=== PATIENT | male | born 1985 | race Caucasian/White ===

== ENCOUNTER 2017-08-15 19:09 | Emergency (ER) | payer SELFPAY ==
[2017-08-15 20:48] LABS: Absolute Lymphocytes (CBC) 1.1 K/uL (0.7-4.9); Absolute Monocytes 0.4 K/uL (0.1-1.3); Basophils % 0.6 % (0-1.3); Eosinophils % 1.2 % (0-4.4); Hematocrit 48.6 % (39.6-49.0); Lymphocytes % 17.1 % (15.3-44.8); MCH 32.1 pg (27.0-35.0); MCV 94.2 fL (80-100); MPV 7.2 fL (7.6-11.3); Monocytes % 6.2 % (3.3-12.3); RBC Red Blood Cell Count 5.16 M/uL (4.33-5.43)
[2017-08-15 20:53] LABS: Bicarbonate 30 mEq/L (21-31); Glucose Level 93 mg/dL (65-120); Potassium 4.2 mEq/L (3.6-5.0); Sodium Level 140 mEq/L (135-145)
[2017-08-15 20:59] LABS: Barbiturates NEGATIVE; Benzodiazepines NEGATIVE; Cocaine NEGATIVE; METHAMPHETAM NEGATIVE; Opiates NEGATIVE; Phencyclidine NEGATIVE; THC Cannibis POSITIVE
[2017-08-15 21:28] LABS: Urine Blood NEGATIVE (NEG); Urine Glucose NEGATIVE (NEG); Urine Protein NEGATIVE (NEG); Urine Specific Gravity 1.015 (1.005-1.030)
[2017-08-15 21:32] LABS: ALT/SGPT 19 IU/L (10-60); AST/SGOT 20 IU/L (10-42); Albumin 4.3 g/dL (3.2-5.5); Alkaline Phosphatase 73 IU/L (42-121); BUN Blood Urea Nitrogen 9 mg/dL (6-20); Bilirubin Total 0.5 mg/dL (0.3-1.2); Glomerular Filtration Rate > 90 mL/min (=/>90); Protein, Total 7.6 g/dL (6.0-8.3)
--- NOTE | 2017-08-15 21:54 | ER ---
Nurse's Notes [facility] Name: Shreyas Graves Age: 32 yrs Sex: Male : 1985 Arrival Date: 08/15/2017 Time: 19:17 Bed 17 Private MD: Diagnosis: Alcohol abuse;Cannabis abuse;Inhalant abuse with intoxication, uncomplicated Presentation: 08/15 19:17 Presenting complaint: EMS states: "picked up after huffing 'multi-purpose duster' and jd3 drinking, was given a choice to be arrested or come to the hospital. pt denies any suicidal ideation or homicidal ideation.". Transition of care: patient was not received from another setting of care. Onset of symptoms was August 15, 2017. Care prior to arrival: None. 19:17 Method Of Arrival: EMS: [facility] jd3 19:17 Acuity: BRUNO 3 jd3 Historical: - Allergies: 19:21 No Known Allergies; jd3 - Home Meds: 19:21 gabapentin oral oral [Active]; Prozac Oral [Active]; jd3 - PMHx: 19:21 Depression; jd3 - PSHx: 19:21 None; jd3 - Immunization history:: Adult Immunizations up to date. - Social history:: Smoking status: Patient uses tobacco products, denies chronic smoking, but will smoke occasionally, Patient uses alcohol, occasionally. - Family history:: not pertinent. - Hospitalizations: : No recent hospitalization is reported. Screenin:24 Abuse screen: Denies threats or abuse. Nutritional screening: No deficits noted. jd3 Tuberculosis screening: No symptoms or risk factors identified. Fall Risk Mental Status- Overestimates/Forgets Limitations (15 pts.). Total Joyce Fall Scale indicates No Risk (0-24 pts). Assessment: 19:23 General: Appears in no apparent distress. comfortable, Behavior is calm, cooperative, jd3 appropriate for age, Smells of alcohol. Pain: Denies pain. Neuro: Level of Consciousness is awake, alert, obeys commands, Oriented to person, place, time, situation. Cardiovascular: Heart tones S1 S2 present Capillary refill < 3 seconds Patient's skin is warm and dry. Rhythm is regular. Respiratory: Airway is patent Respiratory effort is even, unlabored, Respiratory pattern is regular, symmetrical, Breath sounds are clear bilaterally. GI: Abdomen is round Bowel sounds present X 4 quads. Abd is soft and non tender X 4 quads. : No signs and/or symptoms were reported regarding the genitourinary system. EENT: No signs and/or symptoms were reported regarding the EENT system. Derm: Skin is intact, Skin is dry, Skin is normal, Skin temperature is warm. Musculoskeletal: Circulation, motion, and sensation intact. Range of motion: intact in all extremities. 20:46 Reassessment: Patient appears in no apparent distress at this time. Patient and/or jd3 family updated on plan of care and expected duration. Pain level reassessed. Patient is alert, oriented x 3, equal unlabored respirations, skin warm/dry/pink. 22:11 Reassessment: Patient appears in no apparent distress at this time. Patient and/or jd3 family updated on plan of care and expected duration. Pain level reassessed. Patient is alert, oriented x 3, equal unlabored respirations, skin warm/dry/pink. reported understanding of discharge instructions, even and steady gait upon discharge. Vital Signs: 19:21 BP 129 / 85; Pulse 91; Resp 16 S; Temp 98.2(O); Pulse Ox 100% on R/A; Weight 83.91 kg jd3 (R); Height 5 ft. 11 in. (180.34 cm) (R); Pain 0/10; 20:33 BP 125 / 77; Pulse 84; Resp 16; Pulse Ox 99% on R/A; mt 21:30 BP 136 / 85; Pulse 84; Resp 16; Pulse Ox 98% on R/A; mt 22:12 BP 112 / 74; Pulse 84; Resp 17 S; Pulse Ox 99% on R/A; Pain 0/10; jd3 19:21 Body Mass Index 25.80 (83.91 kg, 180.34 cm) [facility] ED Course: 19:17 Patient arrived in ED. [facility] 19:19 Triage completed. [facility] 19:22 Arm band placed on. [facility] 19:22 EKG done, by ED staff, reviewed by rPeet Owens MD. ar 19:24 Patient has correct armband on for positive identification. Bed in low position. Call [facility] light in reach. Side rails up X2. 19:30 Elsi Ortega FNP is [facility]. kalida 19:30 Preet Owens MD is Attending Physician. ka 19:41 Avtar Mccallum, RN is Primary Nurse. jd3 20:43 CBC with Diff Sent. mt 20:43 CMP Sent. mt 20:43 Urine Drug Screen Sent. ar 20:43 Alcohol Level Sent. mt 22:10 No provider procedures requiring assistance completed. Patient did not have IV access jd3 during this emergency room visit. Administered Medications: No medications were administered Outcome: 21:53 Discharge ordered by . fide 22:10 Discharged to home ambulatory. jd3 22:10 Condition: stable 22:10 Discharge instructions given to patient, Instructed on discharge instructions, follow up and referral plans. Demonstrated understanding of instructions, follow-up care. 22:13 Patient left the ED. jd3 Signatures: Elsi Ortega, LABORER FILTER PLANT LABORER FILTER PLANT Ada Santos ar Avtar Mccallum, RN RN jd3 Corrections: (The following items were deleted from the chart) 19:22 19:22 EKG completed in triage. Results shown to MD. halley jd3
--- NOTE | 2017-08-15 21:54 | EDPHYS ---
Physician Documentation [facility] Name: Shreyas Graves Age: 32 yrs Sex: Male : 1985 Arrival Date: 08/15/2017 Time: 19:17 Bed 17 Private MD: ED Physician Preet Owens HPI: 08/15 20:29 This 32 yrs old Male presents to ER via EMS with complaints of inebriation. kav 20:32 This 32 yrs old Male presents to ER via EMS with complaints of inebriated and kav huffed on a spray can to get high. 20:29 Onset: The symptoms/episode began/occurred acutely. Severity of symptoms: At their kav worst the symptoms were moderate just prior to arrival. 20:31 The patient has experienced similar episodes in the past, chronically. kav 20:32 reports drinking alcoholic beverages all day and reports that he is a binge drinker. kav also reports that he has been huffing on a spray can to get high. Historical: - Allergies: 19:21 No Known Allergies; jd3 - Home Meds: 19:21 gabapentin oral oral [Active]; Prozac Oral [Active]; jd3 - PMHx: 19:21 Depression; jd3 - PSHx: 19:21 None; jd3 - Immunization history:: Adult Immunizations up to date. - Social history:: Smoking status: Patient uses tobacco products, denies chronic smoking, but will smoke occasionally, Patient uses alcohol, occasionally. - Family history:: not pertinent. - Hospitalizations: : No recent hospitalization is reported. ROS: 20:32 Constitutional: Negative for fever, chills, and weight loss, Eyes: Negative for injury, kav pain, redness, and discharge, ENT: Negative for injury, pain, and discharge, Neck: Negative for injury, pain, and swelling, Cardiovascular: Negative for chest pain, palpitations, and edema, Respiratory: Negative for shortness of breath, cough, wheezing, and pleuritic chest pain, Abdomen/GI: Negative for abdominal pain, nausea, vomiting, diarrhea, and constipation, Back: Negative for injury and pain, : Negative for injury, bleeding, discharge, and swelling, MS/Extremity: Negative for injury and deformity, Skin: Negative for injury, rash, and discoloration, Neuro: Negative for headache, weakness, numbness, tingling, and seizure, Psych: Negative for depression, anxiety, suicide ideation, homicidal ideation, and hallucinations, Allergy/Immunology: Negative for hives, rash, and allergies, Endocrine: Negative for neck swelling, polydipsia, polyuria, polyphagia, and marked weight changes, Hematologic/Lymphatic: Negative for swollen nodes, abnormal bleeding, and unusual bruising. Exam: 20:32 Constitutional: This is a well developed, well nourished patient who is awake, alert, kav and in no acute distress. Head/Face: Normocephalic, atraumatic. Eyes: Pupils equal round and reactive to light, extra-ocular motions intact. Lids and lashes normal. Conjunctiva and sclera are non-icteric and not injected. Cornea within normal limits. Periorbital areas with no swelling, redness, or edema. ENT: Nares patent. No nasal discharge, no septal abnormalities noted. Tympanic membranes are normal and external auditory canals are clear. Oropharynx with no redness, swelling, or masses, exudates, or evidence of obstruction, uvula midline. Mucous membranes moist. Neck: Trachea midline, no thyromegaly or masses palpated, and no cervical lymphadenopathy. Supple, full range of motion without nuchal rigidity, or vertebral point tenderness. No Meningismus. Chest/axilla: Normal chest wall appearance and motion. Nontender with no deformity. No lesions are appreciated. Cardiovascular: Regular rate and rhythm with a normal S1 and S2. No gallops, murmurs, or rubs. Normal PMI, no JVD. No pulse deficits. Respiratory: Lungs have equal breath sounds bilaterally, clear to auscultation and percussion. No rales, rhonchi or wheezes noted. No increased work of breathing, no retractions or nasal flaring. Abdomen/GI: Soft, non-tender, with normal bowel sounds. No distension or tympany. No guarding or rebound. No evidence of tenderness throughout. Back: No spinal tenderness. No costovertebral tenderness. Full range of motion. Skin: Warm, dry with normal turgor. Normal color with no rashes, no lesions, and no evidence of cellulitis. MS/ Extremity: Pulses equal, no cyanosis. Neurovascular intact. Full, normal range of motion. Neuro: Awake and alert, GCS 15, oriented to person, place, time, and situation. Cranial nerves II-XII grossly intact. Motor strength 5/5 in all extremities. Sensory grossly intact. Cerebellar exam normal. Normal gait. Psych: Awake, alert, with orientation to person, place and time. Behavior, mood, and affect are within normal limits. Vital Signs: 19:21 BP 129 / 85; Pulse 91; Resp 16 S; Temp 98.2(O); Pulse Ox 100% on R/A; Weight 83.91 kg jd3 (R); Height 5 ft. 11 in. (180.34 cm) (R); Pain 0/10; 20:33 BP 125 / 77; Pulse 84; Resp 16; Pulse Ox 99% on R/A; mt 21:30 BP 136 / 85; Pulse 84; Resp 16; Pulse Ox 98% on R/A; mt 22:12 BP 112 / 74; Pulse 84; Resp 17 S; Pulse Ox 99% on R/A; Pain 0/10; jd3 19:21 Body Mass Index 25.80 (83.91 kg, 180.34 cm) jd3 MDM: 19:30 [facility] medically screened. [facility] 21:55 Data reviewed: vital signs, nurses notes, lab test result(s). [facility] 08/15 20:29 Order name: CBC with Diff [facility] 08/15 20:29 Order name: CMP 08/15 20:29 Order name: Urine Drug Screen [facility] 08/15 20:31 Order name: Alcohol Level [facility] 08/15 20:47 Order name: Urine Dipstick--Ancillary (enter results); Complete Time: 21:23 rg2 08/15 21:23 Interpretation: Within normal limits. [facility] 08/15 20:54 Order name: Comprehensive Metabolic Panel; Complete Time: 21:53 EDMS 08/15 21:13 Interpretation: Normal except: CL 99. [facility] 08/15 20:29 Order name: Urine Dipstick-Ancillary (obtain specimen); Complete Time: 20:43 [facility] 08/15 21:17 Interpretation: Within normal limits. [facility] 08/15 20:58 Order name: CBC with Automated Diff; Complete Time: 21:13 EDMS 08/15 21:13 Interpretation: Normal except: MPV 7.2; GRISELDA% 74.9. [facility] 08/15 20:59 Order name: Urine Drug Screen; Complete Time: 21:12 EDMS 08/15 21:12 Interpretation: Normal except: THC POSITIVE. kav 08/15 21:29 Order name: Urine Dipstick-Ancillary; Complete Time: 21:53 EDMS 03 21:53 Interpretation: Within normal limits. kav 08/15 21:32 Order name: Alcohol Serum/Plasma; Complete Time: 21:53 EDMS 03 21:53 Interpretation: Normal except: ETOH 135. kav Administered Medications: No medications were administered Disposition: 08/16 07:06 Co-signature as Attending Physician, Preet Owens MD I agree with the assessment and [facility] plan of care. Disposition: 08/15/17 21:53 Discharged to Home. Impression: Alcohol abuse, Cannabis abuse, Inhalant abuse with intoxication, uncomplicated. - Condition is Stable. - Discharge Instructions: Alcohol and Drug Addiction, Finding Treatment, Alcohol Use Disorder, Inhalant Use Disorder, Polysubstance Abuse, Alcohol Abuse and Nutrition, Alcohol Withdrawal, [id number], How Much is Too Much Alcohol, [id number]. - Medication Reconciliation Form, Thank You Letter, Antibiotic Education, Prescription Opioid Use form. - Follow up: Private Physician; When: 1 - 2 days; Reason: Recheck today's complaints, Continuance of care, Re-evaluation by your physician. - Problem is new. - Symptoms have improved. - Notes: abstain from alcohol, cannibis and inhalant abuse ensure adequate hydration Signatures: Dispatcher [employer] Preet Acosta MD MD cha Vern, Katherine, JANITOR HEAD JANITOR HEAD Avtar Gaviria, RN RN jd3 Corrections: (The following items were deleted from the chart) 08/15 20:33 20:29 patient reportedly inebriated and reports that he "...huffed on a paint can to kav get high". kav
--- NOTE | 2017-08-16 07:26 | EKG ---
Test Date: 2017-08-15 Test Time: 19:20:23 Acoustical Logging Engineer: YEFRI MEASUREMENT RESULTS: Intervals: Rate: 83 TN: 134 QRSD: 92 QT: 370 QTc: 434 [place]: P: 35 TN: 134 QRS: 84 T: 26 INTERPRETIVE STATEMENTS: Normal sinus rhythm normal ECG No previous ECG available for comparison Electronically Signed On 08-16-17 07:25:22 CDT by Fabiano Atwood
== END 2017-08-15 22:13 | disposition home or self-care (01) ==
LOC: ER 19:09
DX: F10.10 Alcohol abuse, uncomplicated (principal); F12.10 Cannabis abuse, uncomplicated; F32.9 Major depressive disorder, single episode, unspecified; Z72.0 Tobacco use
CPT/HCPCS: 36415; 80053; 80307; 80320; 81003; 85025; 93005; 99284

== ENCOUNTER 2018-02-23 22:57 | Emergency (ER) | payer SELFPAY ==
--- OUTSIDE RECORDS SUMMARY | 2018-02-23 22:59 | XMS REPORT | Clinical Summary ---
:1985 Author Organization [facility] Address [address] [place] [address] Care Team Providers Name Role Phone Asked, No Pcp Primary Care Provider Unavailable Allergies No Known Allergies Current Medications Prescription Sig. Disp. Refills Start Date End Date Status mirtazapine (REMERON) Take 1 tablet 30 tablet 0 07/17/2017 08/16/2017 15 MG (15 mg total) tabletIndications: by mouth Major Depressive nightly for 30 Disorder days. gabapentin Take 1 capsule 90 capsule 0 07/17/2017 08/16/2017 (NEURONTIN) 400 mg (400 mg total) capsuleIndications: by mouth 3 Alcoholism (three) times a day for 30 days. FLUoxetine (PROzac) Take 1 capsule 30 capsule 0 07/17/2017 08/16/2017 40 MG (40 mg total) capsuleIndications: by mouth every Major Depressive morning for 30 Disorder days. nicotine (NICODERM Place 1 patch 30 patch 0 07/17/2017 08/16/2017 CQ) 21 mg/24 on the skin hrIndications: daily as needed Smoking Cessation (Cravings) for up to 30 days. disulfiram (ANTABUSE) Take 2 tablets 60 tablet 0 07/17/2017 08/16/2017 250 mg (500 mg total) tabletIndications: by mouth daily Alcoholism for 30 days. 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 Pulse 71 07/18/2017 5:54 AM VOTING MACHINE REPAIRER Temperature 36.1 C (97 F) 07/18/2017 5:54 AM VOTING MACHINE REPAIRER Respiratory Rate 18 07/18/2017 5:54 AM VOTING MACHINE REPAIRER Oxygen Saturation 97% 07/17/2017 7:13 PM VOTING MACHINE REPAIRER Inhaled Oxygen Concentration - - Weight 87.1 kg (192 lb) 07/11/2017 9:33 PM VOTING MACHINE REPAIRER Height 180.3 cm (5' 11") 07/11/2017 9:33 PM VOTING MACHINE REPAIRER Body Mass Index 26.78 07/11/2017 9:33 PM VOTING MACHINE REPAIRER Plan of Treatment Not on file Procedures Procedure Name Priority Date/Time Associated Diagnosis Comments ECG 12-LEAD STAT 07/12/2017 9:20 AM Results for this VOTING MACHINE REPAIRER procedure are in the results section. LIPID PANEL Routine 07/12/2017 1:10 AM Results for this VOTING MACHINE REPAIRER procedure are in the results section. HEMOGLOBIN A1C Routine 07/12/2017 1:10 AM Results for this VOTING MACHINE REPAIRER procedure are in the results section. after 02/22/2017 Results ECG 12 lead (07/12/2017 9:20 AM) Ventricular rate 78 [facility] Atrial rate 78 [facility] FL interval 130 [facility] QRSD interval 96 [facility] QT interval 360 [facility] QTC interval 410 [facility] P axis 1 30 [facility] QRS axis 1 61 [facility] T wave axis 40 [facility] EKG impression Normal sinus rhythm-Early [facility] MUSE repolarization-Normal ECG-No previous ECGs available- Performing Organization Address City/State/Zipcode Phone Number [facility] MUSE [address] [place] [address] Hemoglobin A1c (07/12/2017 1:10 AM) Hemoglobin A1C 4.8 4.0 - 5.6 % [facility] DEPARTMENT OF PATHOLOGY Comment: AND GENOMIC MEDICINE HbA1c cutoffs for diagnosing diabetes: 4.0% - 5.6%=normal 5.7% - 6.4%=increased risk for diabetes (prediabetes) >=6.5%=diabetes Goals for glycemic control (ADA 2016) < 7.0%Target for non adults with diabetes. More or less stringent targets may be appropriate for individual patients. <7.5% Target for Children and adolescents with type 1 diabetes. Specimen Blood Performing Organization Address City/[facility]/Zipcode Phone Number [facility] DEPARTMENT OF PATHOLOGY AND [address] [place] [address] [facility] Lipid panel (07/12/2017 1:10 AM) Cholesterol 152 <200 mg/dL [facility] DEPARTMENT OF PATHOLOGY AND GENOMIC MEDICINE Triglycerides 92 <150 mg/dL [facility] DEPARTMENT OF PATHOLOGY AND GENOMIC MEDICINE HDL cholesterol 51 >40 mg/dL [facility] DEPARTMENT OF PATHOLOGY AND GENOMIC MEDICINE LDL cholesterol 96Comment: Result <100 mg/dL [facility] DEPARTMENT OF obtained by direct LDL PATHOLOGY AND GENOMIC measurement MEDICINE Lipid panel interpretation SeeBelow [facility] DEPARTMENT OF Comment: PATHOLOGY AND GENOMIC Total Cholesterol (mg/dL) MEDICINE <200 Desirable [id number] >=240High Triglycerides (mg/dL) <150 Normal [id number] 200-499High >=500Very high HDL Cholesterol (mg/dL) <40Low (male) <40Low (female) LDL Cholesterol (mg/dL) <100 Optimal 100-129Near or above optimal [id number] 160-189High >=190Very high Risk Catergories that modify LDL goals. Risk CatergoriesLDL goal (mg/dL) CHD and CHD risk equivalent<100 (10-year risk >20%) Multiple (2+) risk factors <130 (10-year risk=<20%) 0-1 risk factors <160 (<10-year risk) Defining levels of lipids in metabolic syndrome Triglycerides>=150 mg/dL HDL Cholesterol Men<40 mg/dL Women<40 mg/dL Non-HDL cholesterol is a second target for therapy in persons with high triglycerides (>=200 mg/dL) Specimen Plasma specimen Performing Organization Address City/State/Zipcode Phone Number [facility] DEPARTMENT OF PATHOLOGY AND [address] [place] [address] [facility] after 02/22/2017
--- OUTSIDE RECORDS SUMMARY | 2018-02-23 23:00 | XMS REPORT ---
:1985 [facility] Address [address] [place] [address] [address]. Anand [address] [place] [address] Care Team Providers Name Role Phone UNKNOWN, REFFERING Primary Care Provider Unavailable JASS QUIROGA Unavailable Unavailable JN HANDY Unavailable Unavailable Problems This patient has no known problems. Allergies, Adverse Reactions, Alerts This patient has no known allergies or adverse reactions. Medications This patient has no known medications. Encounters Start End Encounter Admission Attending Care Care Encounter Date/Time Date/Time Type Type Clinicians Facility Department ID 2017-06-21 2017-06-21 [id number] 18:20:00 18:20:00 [facility] 2017-03-09 2017-03-09 Outpatient [facility] [id number] 10:00:34 10:00:34 2017-02-20 2017-02-20 Outpatient [facility] [id number] 09:20:47 09:20:47 2017-02-19 2017-02-19 Outpatient [facility] [id number] 00:00:00 00:00:00 2017-01-22 2017-01-22 Outpatient [facility] [id number] 00:00:00 00:00:00 2017-01-18 2017-01-18 Outpatient [facility] [id number] 00:00:00 00:00:00 2017-01-08 2017-01-08 Outpatient [facility] [id number] 11:44:05 11:44:05 2016-12-28 2016-12-28 Outpatient [facility] [id number] 12:28:35 12:28:35 2016-12-25 2016-12-25 Outpatient [facility] [id number] 13:05:59 13:05:59 2016-12-18 2016-12-18 Outpatient [facility] [id number] 00:00:00 00:00:00 2016-12-15 2016-12-15 Outpatient [facility] [id number] 13:06:16 13:06:16 2016-12-11 2016-12-11 Outpatient [facility] [id number] 10:18:48 10:18:48 2016-12-08 2016-12-08 Outpatient [facility] [id number] 11:14:06 11:14:06 2016-11-27 2016-11-27 Outpatient [facility] [id number] 10:17:18 10:17:18 2016-11-27 2016-11-27 Outpatient [facility] [id number] 09:42:12 09:42:12 2016-11-26 2016-11-26 Emergency [facility] [id number] 15:32:51 15:32:51 2016-11-26 2016-11-26 Emergency [facility] [id number] 09:37:18 09:37:18 2016-09-30 2016-09-30 Emergency [facility] [id number] 17:18:00 17:18:00 2016-09-03 2016-09-05 Inpatient 3 HANDY, BHSSET DTX [id number] 20:34:00 23:00:00 JN 2016-07-30 2016-08-11 Inpatient 2 HANDY, BHSSET DTX [id number] 00:02:00 11:02:00 JN 2016-07-29 2016-07-29 Emergency [facility] [id number] 16:55:00 16:55:00 2016-07-25 2016-07-25 Emergency [facility] [id number] 16:37:00 16:37:00 2016-07-16 2016-07-16 Emergency [facility] [id number] 11:32:00 11:32:00 Results Test Description Test Time Test Comments Text Results Atomic Results Result Comments [id number] 2017-06-21 23:39:00 Test Item Value Reference Range Comments Amphetamine (test code=AMPH) Negative Negative For diagnostic purposes only, positive results should always be assessedin conjunctionwith the patient's medical history,clinical examination and otherfindings.To fulfill legal requirements, a more specific alternate chemical methodmust be used inorder to obtain a Confirmed analytical result. GC/MS is the preferred confirmatory method. Barbiturates (test code=CHERYLE) Negative Negative Benzodiazepine (test code=SAMANTHA) Negative Negative Cocaine (test code=COCA) Negative Negative Methadone (test code=MTHD) Negative Negative Opiates (test code=OPIA) Negative Negative PCP (test code=PCP) Negative Negative Propoxyphene (test code=PROPOX) Negative Negative THC (test code=THC) Negative Negative Alcohol, Urine (test code=ETOHU) 0.20 g/dL 0.00-0.01 Urinalysis [id number] 23:37:00 Test Item Value Reference Range Comments Color (test code=COLOR) Yellow Yellow,Straw,Pl yellow Clarity (test code=CLAR) Clear Clear Specific [place] (test code=SPGR) 1.018 1.001-1.035 pH (test code=PH) 5.0 5.0-9.0 Ketone (test code=KET) 5 mg/dL Negative Glucose (test code=GLUCUR) Negative mg/dL Negative Protein (test code=PROT) Negative mg/dL Negative Bilirubin (test code=BILI) Negative mg/dL Negative Occult Blood (test code=UDOB) Negative Negative Urobilinogen (test code=UROB) 0.2 mg/dL 0.2-1.0 Nitrite (test code=NIT) Negative Negative Leuk Esterase (test code=LEUK) Negative Negative Micros Exam (test code=MEXAM) Indicated Epithelial Cells (test code=EPI) None /LPF 0-30 WBC, Urine (test code=UWBC) None seen /HPF 0-5 RBC, Urine (test code=URBC) None Seen /HPF 0-5 Bacteria (test code=BACT) None /HPF Alcohol/Ethanol, [id number] 20:42:00 Test Item Value Reference Range Comments Alcohol, Ethyl (test 0.21 g/dL 0.00-0.01 Intoxicated 0.080 g/dL or code=ETOH) more Comprehensive Metabolic [id number] 20:42:00 Test Item Value Reference Range Comments Sodium (test code=NA) 144 mmol/L 135-145 Potassium (test code=K) 4.0 mmol/L 3.5-5.1 Chloride (test code=CL) 100 mmol/L 98-105 Carbon Dioxide (test 31 mmol/L 22-29 code=CO2) Glucose (test code=GLU) 94 mg/dL 70-115 Blood Urea Nitrogen 14 mg/dL 6-20 (test code=BUN) Creatinine (test 1.0 mg/dL 0.7-1.2 code=CREAT) Calcium (test code=CA) 9.8 mg/dL 8.3-10.5 Prot Total (test 8.7 g/dL 6.4-8.3 code=TP) Albumin (test code=ALB) 5.2 g/dL 3.5-5.2 A/G Ratio (test 1.5 Ratio code=AGRATIO) Globulin (test 3.5 2.9-3.1 code=GLOB) Bili Total (test 0.2 mg/dL 0.1-0.9 code=TBIL) Alk Phos (test 83 U/L 40-129 code=APHOS) AST (test code=AST) 20 U/L 1-40 ALT (test code=ALT) 23 U/L 1-41 BUN/Creatinine Ratio 14.0 (test code=BCRATIO) Anion Gap (test 13 mmol/L 7-16 code=AGAP) Estimated GFR (test >60 mL/min/1.73m2 eGFR (estimated Glomerular code=GFR) Filtration Rate) is an estimated value,calculated from the patient's serum creatinine using the MDRD equation.It is NOT the patient's actual GFR. The eGFR provides a more clinicallyuseful measure of kidney disease than serum creatinine alone.This calculation takes sex and race into account, if the informationis provided. If the race is not provided, and the patient isAfrican-Namibian, multiply by 1.212. If sex is not provided, and thepatient is female, multiply by 0.742. Results for patients <18 years ofage have not been validated by the MDRD study and should be interpretedwith caution.eGFR Result Interpretation:eGFR > or=60 is in the Normal RangeeGFR < 60 may mean kidney diseaseeGFR < 15 may mean kidney failureRanges recommended by the National Kidney Foundation,http://nkdep.nih .gov [id number] 20:42:00 Test Item Value Reference Range Comments Salicylate (test code=SALI) <0.3 mg/dL 0.3-10.0 Change in unit of measurement for Salicylate ( from ug/mL to mg/dL ) [id number] 20:42:00 Test Item Value Reference Range Comments Acetaminophen (test code=ACET) <15.0 ug/mL 15.0-30.0 CBC with [id number] 20:23:00 Test Item Value Reference Range Comments WBC (test code=WBC) 4.6 K/cumm 4.4-10.5 RBC (test code=RBC) 5.57 M/cumm 4.10-5.70 Hemoglobin (test code=HGB) 16.9 gm/dL 13.4-17.4 Hematocrit (test code=HCT) 48.8 % 38.7-52.0 MCV (test code=MCV) 87.6 fL 80-100 MCH (test code=MCH) 30.4 pg 27.0-32.5 MCHC (test code=MCHC) 34.7 g/dL 32.0-37.5 RDW (test code=RDW) 14.1 % 11.5-14.5 Platelet Count (test code=PLTCT) 331 K/cumm 140-440 MPV (test code=MPV) 8.7 fL Diff Method (test code=DIFFM) Auto Neutrophil (test code=NEUT) 57.5 % 36-70 Lymphocyte (test code=LYMPH) 35.7 % 12-44 Monocyte (test code=MONO) 4.1 % 0-11 Eosinophil (test code=EOS) 1.5 % 0-7 Basophil (test code=BASO) 1.1 % 0-2 Neutro Abs (test code=ANEUT) 2.7 K/cumm 1.6-7.4 Lymph Abs (test code=ALYMPH) 1.6 K/cumm 0.5-4.6 [place] Abs (test code=AMONO) 0.2 K/cumm 0.0-1.2 Eos Abs (test code=AEOS) 0.07 K/cumm 0.00-0.74 Baso Abs (test code=ABASO) 0.1 K/cumm 0.00-0.21 SYPHILIS (T. PALLIDUM) [id number] 15:33:00 Test Item Value Reference Range Comments SCRN SYP (test code=SCRN NONREACTIVE NONREACTIVE Spyhilis IGG is a screening SYP) test only. All REACTIVE results kayleigh be confirmed by additional testing. CREATINE [id number] 10:11:00 Test Item Value Reference Range Comments CK (test code=CK) 417 U/L 55-170 THYROID STIMULATION [id number] 01:57:00 Test Item Value Reference Range Comments TSH (test code=TSH) 0.63 UIU/ML 0.465-4.68 [id number] 01:18:00 Test Item Value Reference Range Comments MG (test code=MG) 2.5 mg/dL 1.6-2.3 [id number] 01:18:00 Test Item Value Reference Range Comments PHOSPHOR (test code=PHOSPHOR) 2.6 MG/DL 2.5-4.5 PROTHROMBIN TIME WITH [id number] 01:04:00 Test Item Value Reference Range Comments PROTHROMBIN TIME (test 11.8 SECONDS 12.0-14.6 INR Usual Range=2 to 3 for code=PT) prevention of deep vein thrombosis (DVT) INR (test code=INR) 0.8 XR CHEST SGL 1V, [id number] 18:23:21CHEST SINGLE VIEW:REASON FOR STUDY: PSYCH SCREENINGFINDINGS:Cardiomediastinal structures are within normal limits. No pleural fluidor pulmonary infiltrates are identified. The bony architecture appearsintact, where adequately seen.IMPRESSION: No active cardiopulmonary process is identified.XR CHEST SGL 1V, [id number] 17:07:24Information: Psychosis and smoking historyCOMPARISON: NoneCHEST:Cardiomediastinal structures are within normal limits. No pleural fluidor pulmonary infiltrates are identified. The bony architecture appearsintact, where adequately seen.
[2018-02-24] MEDS ORDERED: NA CHLORIDE 0.9% 1,000 ML ONE
--- NOTE | 2018-02-24 00:08 | ER ---
Nurse's Notes [facility] Name: Shreyas Graves Age: 32 yrs Sex: Male : 1985 Arrival Date: 02/23/2018 Time: 22:58 Bed 19 Private MD: Diagnosis: Major depressive disorder, recurrent;Suicidal ideations;Suicide attempt;Abuse of non-psychoactive substances Presentation: 02/23 23:08 Presenting complaint: EMS states: EMS reports PD found pt unresponsive at home, upon ea arrival of EMS pt was A \\T\\ O x 3. 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 EMS reports pt verbalized that he did not want to live. Transition of care: patient was not received from another setting of care. Onset of symptoms was February 23, 2018. Risk Assessment: Do you want to hurt yourself or someone else? Patient reports desire/thoughts of hurting themselves or someone else. Provider notified. Initial Sepsis Screen: Does the patient meet any 2 criteria? HR > 90 bpm. Does the patient have a suspected source of infection? No. Patient's initial sepsis screen is negative. Care prior to arrival: None. 23:08 Method Of Arrival: EMS: [facility] ea 23:08 Acuity: BRUNO 2 ea Triage Assessment: 23:08 General: Appears uncomfortable, Behavior is cooperative, appropriate for age, anxious. ea Pain: Denies pain. Neuro: Level of Consciousness is awake, alert, obeys commands, Oriented to person, place, time, situation. Cardiovascular: Heart tones S1 S2 present Patient's skin is warm and dry. Respiratory: Airway is patent Respiratory effort is even, unlabored, Respiratory pattern is regular, symmetrical, Breath sounds are clear bilaterally. GI: No signs and/or symptoms were reported involving the gastrointestinal system. : No signs and/or symptoms were reported regarding the genitourinary system. Derm: red circular peña on chest pt states " those peña are from the can getting cold and being against my chest". Historical: - Allergies: 23:16 No Known Allergies; ea - PMHx: 23:16 Depression; ea - PSHx: 23:16 None; ea - Immunization history:: Adult Immunizations up to date. - Social history:: Smoking status: Patient/guardian denies using tobacco. - Ebola Screening: : No symptoms or risks identified at this time. - Family history:: not pertinent. Screenin:21 Abuse screen: Denies threats or abuse. Nutritional screening: No deficits noted. ea Tuberculosis screening: No symptoms or risk factors identified. Fall Risk None identified. Assessment: 23:20 General: Appears in no apparent distress. uncomfortable, Behavior is calm, cooperative, tl2 appropriate for age. Pain: Denies pain. Neuro: Level of Consciousness is awake, alert, obeys commands, Oriented to person, place, time, situation. Cardiovascular: Denies chest pain. Respiratory: Airway is patent Respiratory effort is even, unlabored, Respiratory pattern is regular, symmetrical. GI: No signs and/or symptoms were reported involving the gastrointestinal system. : No signs and/or symptoms were reported regarding the genitourinary system. Derm: Skin is pink, warm \\T\\ dry. 02/24 01:17 Reassessment: Police stated that pt has been cleared by [facility] and that when he is tl2 medically clear he is going to be released to police custody. 01:32 Reassessment: Patient appears in no apparent distress at this time. Patient and/or tl2 family updated on plan of care and expected duration. Pain level reassessed. Patient is alert, oriented x 3, equal unlabored respirations, skin warm/dry/pink. Pt cleared for discharge by MD, Pt verbalized understanding of discharge instructions. Psych: 00:20 Subjective: Patient's mood is hopeless, Delusions are denied, Hallucinations are denied tl2 Having thoughts of suicide. Denies suicidal plan. pt was huffing condensed air. Objective: Patient is cooperative, Speech is normal, Affect is appropriate. Interventions: Removed personal items and placed in bag. Patient placed in hospital gown. Suicide Risk Assessment: Sad Person Scale: Sex of patient: Male: Score 1 point. Age of patient: Score 1 point if patient 15-34. Depression: Score 1 point if signs of depression are present. Previous Attempt: Score 0 point if patient has not previously attempted suicide. Substance Abuse: Score 0 point if patient does not abuse alcohol or drugs. Rational Thinking: Score 0 point if patient has rational thinking. Social Support: Score 1 point if social support is lacking and/or unavailable. Organized Plan: Score 0 if patient did not have an organized plan in place. Relationship: Score 1 point if patient is , , , or for a single male Chronic Sickness: Score 0 point if patient does not have a chronic illness, debilitating, or severe disorder. TOTAL POINTS: If total points are 5-6, proposed clinical action is to strongly consider hospitalization, depending upon confidence in the follow-up arrangement. Implement suicide precautions. Pt denies substance abuse. Commitment: Patient will be a voluntary commitment. 00:44 Safety Checks: Personal items have been removed. Door is open. No visitors are present hb1 at this time. sitter present: yes. pt is laying on stretcher, with IVF on going. 01:01 Safety Checks: Personal items have been removed. Door is open. No visitors are present hb1 at this time. sitter present: yes, ivf on flow, peed per urinal 400mls. 01:17 Safety Checks: Personal items have been removed. Door is open. No visitors are present hb1 at this time. sitter present: yes. Pt laying on stretcher, calm and cooperative. ivf still on flow. Vital Signs: 02/23 23:20 BP 124 / 77; Pulse 102; Resp 18; Temp 98(O); Pulse Ox 97% on R/A; Weight 88.45 kg; ea Height 5 ft. 11 in. (180.34 cm); Pain 0/10; 23:57 BP 124 / 77; Pulse 103; Resp 16; Pulse Ox 97% on R/A; tl2 23:20 Body Mass Index 27.20 (88.45 kg, 180.34 cm) ea ED Course: 22:58 Patient arrived in ED. am2 23:09 Preet Owens MD is Attending Physician. ramin 23:12 Triage completed. ea 23:21 Patient has correct armband on for positive identification. Bed in low position. Call ea light in reach. Side rails up X 1. 23:21 Arm band placed on right wrist. Patient placed in an exam room, on a stretcher, on ea school lunch monitor, on pulse oximetry. 23:56 Cheyanne Pineda RN is Primary Nurse. tl2 23:57 Inserted saline lock: 22 gauge in right antecubital area, using aseptic technique. tl2 Blood collected. 02/24 01:32 No provider procedures requiring assistance completed. IV discontinued, intact, tl2 bleeding controlled, No redness/swelling at site. Pressure dressing applied. Administered Medications: 02/23 23:56 Drug: NS 0.9% 1000 ml Route: IV; Rate: 1 bolus; Site: right antecubital; tl2 02/24 01:34 Follow up: IV Status: Completed infusion; IV Intake: 1000ml tl2 Intake: 01:34 IV: 1000ml; Total: 1000ml. tl2 Outcome: 00:07 ER care complete, transfer ordered by . ramin 00:55 Discharge ordered by . ramin 01:32 Discharged to Law Enforcement tl2 01:32 Condition: stable 01:32 Discharge instructions given to patient, police, Instructed on discharge instructions. 01:40 Patient left the ED. tl2 Signatures: Preet Owens MD MD cha Knox, Taylor RN RN tl2 Minerva Martinez Elena RN RN Bela Benavides 1
--- NOTE | 2018-02-24 00:08 | EDPHYS ---
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 23:30 The patient presents to the emergency department with depression, over unknown ramin circumstances. Onset: The symptoms/episode began/occurred 2 day(s) ago. Past psychiatric history: Prior diagnosis: depression. Associated signs and symptoms: The patient has no apparent associated signs or symptoms. Severity of symptoms: At their worst the symptoms were mild in the emergency department the symptoms are unchanged. The patient has not experienced similar symptoms in the past. Historical: - Allergies: 23:16 No Known Allergies; ea - PMHx: 23:16 Depression; ea - PSHx: 23:16 None; ea - Immunization history:: Adult Immunizations up to date. - Social history:: Smoking status: Patient/guardian denies using tobacco. - Ebola Screening: : No symptoms or risks identified at this time. - Family history:: not pertinent. ROS: 23:30 Constitutional: Negative for fever, chills, and weight loss, Eyes: Negative for injury, ramin pain, redness, and discharge, ENT: Negative for injury, pain, and discharge, Neck: Negative for injury, pain, and swelling, Cardiovascular: Negative for chest pain, palpitations, and edema, Respiratory: Negative for shortness of breath, cough, wheezing, and pleuritic chest pain, Abdomen/GI: Negative for abdominal pain, nausea, vomiting, diarrhea, and constipation, Back: Negative for injury and pain, : Negative for injury, bleeding, discharge, and swelling, MS/Extremity: Negative for injury and deformity, Skin: Negative for injury, rash, and discoloration, Psych: Negative for depression, anxiety, suicide ideation, homicidal ideation, and hallucinations, Allergy/Immunology: Negative for hives, rash, and allergies, Endocrine: Negative for neck swelling, polydipsia, polyuria, polyphagia, and marked weight changes, Hematologic/Lymphatic: Negative for swollen nodes, abnormal bleeding, and unusual bruising. 23:30 Neuro: Positive for 23:30 Psych: Positive for anxiety, suicide gesture, suicidal ideation. Exam: 23:30 Constitutional: This is a well developed, well nourished patient who is awake, alert, ramin and in no acute distress. Head/Face: Normocephalic, atraumatic. Eyes: Pupils equal round and reactive to light, extra-ocular motions intact. Lids and lashes normal. Conjunctiva and sclera are non-icteric and not injected. Cornea within normal limits. Periorbital areas with no swelling, redness, or edema. ENT: Nares patent. No nasal discharge, no septal abnormalities noted. Tympanic membranes are normal and external auditory canals are clear. Oropharynx with no redness, swelling, or masses, exudates, or evidence of obstruction, uvula midline. Mucous membranes moist. Neck: Trachea midline, no thyromegaly or masses palpated, and no cervical lymphadenopathy. Supple, full range of motion without nuchal rigidity, or vertebral point tenderness. No Meningismus. Chest/axilla: Normal chest wall appearance and motion. Nontender with no deformity. No lesions are appreciated. Cardiovascular: Regular rate and rhythm with a normal S1 and S2. No gallops, murmurs, or rubs. Normal PMI, no JVD. No pulse deficits. Respiratory: Lungs have equal breath sounds bilaterally, clear to auscultation and percussion. No rales, rhonchi or wheezes noted. No increased work of breathing, no retractions or nasal flaring. Abdomen/GI: Soft, non-tender, with normal bowel sounds. No distension or tympany. No guarding or rebound. No evidence of tenderness throughout. Back: No spinal tenderness. No costovertebral tenderness. Full range of motion. Male : Normal genitalia with no discharge or lesions. Skin: Warm, dry with normal turgor. Normal color with no rashes, no lesions, and no evidence of cellulitis. MS/ Extremity: Pulses equal, no cyanosis. Neurovascular intact. Full, normal range of motion. Neuro: Awake and alert, GCS 15, oriented to person, place, time, and situation. Cranial nerves II-XII grossly intact. Motor strength 5/5 in all extremities. Sensory grossly intact. Cerebellar exam normal. Normal gait. Psych: Awake, alert, with orientation to person, place and time. Behavior, mood, and affect are within normal limits. Vital Signs: 23:20 BP 124 / 77; Pulse 102; Resp 18; Temp 98(O); Pulse Ox 97% on R/A; Weight 88.45 kg; ea Height 5 ft. 11 in. (180.34 cm); Pain 0/10; 23:57 BP 124 / 77; Pulse 103; Resp 16; Pulse Ox 97% on R/A; tl2 23:20 Body Mass Index 27.20 (88.45 kg, 180.34 cm) ea MDM: 23:09 Patient medically screened. [facility] 23:33 Data reviewed: vital signs, nurses notes, lab test result(s), EKG. [facility] 02/23 23:29 Order name: Acetaminophen [facility] 02/23 23:29 Order name: Basic Metabolic Panel [facility] 02/23 23: Order name: CBC with Diff; Complete Time: 00:54 [facility] 02/23 23:29 Order name: ETOH Level; Complete Time: 00:54 [facility] 02/23 23:29 Order name: Hepatic Function; Complete Time: 01:21 [facility] 02/23 23:29 Order name: PT-INR; Complete Time: 00:54 [facility] 02/23 23:29 Order name: Ptt, Activated; Complete Time: 00:54 [facility] 02/23 23:29 Order name: Salicylate; Complete Time: 00:54 [facility] 02/23 23:29 Order name: Urine Drug Screen; Complete Time: 01:21 [facility] 02/23 23:29 Order name: EKG; Complete Time: 23:30 [facility] 02/23 23:30 Order name: Acetaminophen Level; Complete Time: 01:21 [facility] 02/23 23:30 Order name: Basic Metabolic Panel; Complete Time: 01:21 [facility] 02/24 01:05 Order name: Urine Dipstick--Ancillary (enter results); Complete Time: 01:21 [facility] 02/23 23:29 Order name: EKG - Nurse/Tech; Complete Time: 23:35 [facility] 02/23 23:29 Order name: IV Saline Lock; Complete Time: 23:56 [facility] 02/23 23:29 Order name: Labs collected and sent; Complete Time: 23:56 [facility] 02/23 23:29 Order name: Urine Dipstick-Ancillary (obtain specimen); Complete Time: 01:00 [facility] Administered Medications: 23:56 Drug: NS 0.9% 1000 ml Route: IV; Rate: 1 bolus; Site: right antecubital; tl2 02/24 01:34 Follow up: IV Status: Completed infusion; IV Intake: 1000ml tl2 Disposition: 02/24/18 00:55 Discharged to Home. Impression: Major depressive disorder, recurrent, Suicidal ideations, Suicide attempt, Abuse of non-psychoactive substances. - Condition is Stable. - Discharge Instructions: Substance Use Disorder, Suicidal Feelings: How to Help Yourself, Helping Someone Who is Suicidal. - Medication Reconciliation Form, Thank You Letter, Antibiotic Education, Prescription Opioid Use form. - Follow up: Private Physician; When: 2 - 3 days; Reason: Recheck today's complaints, Continuance of care, Re-evaluation by your physician. - Problem is new. - Symptoms have improved. Signatures: Dispatcher [employer] EDPreet Cruz MD MD cha Knox, Taylor, RN RN tl2 Chitar Olmstead RN RN ea Corrections: (The following items were deleted from the chart) 00:54 00:07 02/24/2018 00:07 Transfer ordered to Psych Facility. Diagnosis is Suicidal ramin ideations; Suicide attempt; Abuse of non-psychoactive substances. Reason for transfer: Higher level of care. Accepting physician is to psych. Condition is Stable. Problem is new. Symptoms have improved. [facility] 01:40 00:55 02/24/2018 00:55 Discharged to Home. Impression: Major depressive disorder, tl2 recurrent; Suicidal ideations; Suicide attempt; Abuse of non-psychoactive substances. Condition is Stable. Forms are Medication Reconciliation Form, Thank You Letter, Antibiotic Education, Prescription Opioid Use. Follow up: Private Physician; When: 2 - 3 days; Reason: Recheck today's complaints, Continuance of care, Re-evaluation by your physician. Problem is new. Symptoms have improved. ramin
[2018-02-24 00:38] LABS: Absolute Lymphocytes (CBC) 1.4 K/uL (0.7-4.9); Absolute Monocytes 0.4 K/uL (0.1-1.3); Absolute Neutrophil 9.3 K/uL (1.8-8.0); Basophils % 0.3 % (0-1.3); Eosinophils % 0.2 % (0-4.4); Hematocrit 41.9 % (39.6-49.0); Lymphocytes % 12.8 % (15.3-44.8); MCH 31.3 pg (27.0-35.0); MCV 90.1 fL (80-100); MPV 7.6 fL (7.6-11.3); Monocytes % 3.4 % (3.3-12.3); RBC Red Blood Cell Count 4.65 M/uL (4.33-5.43)
[2018-02-24 00:43] LABS: Protime INR 0.91
[2018-02-24 01:09] LABS: ALT/SGPT 24 U/L (12-78); AST/SGOT 22 U/L (15-37); Albumin 3.9 g/dL (3.4-5.0); Alkaline Phosphatase 64 U/L (45-117); BUN Blood Urea Nitrogen 18 mg/dL (7-18); Bicarbonate 28 mmol/L (21-32); Bilirubin Direct < 0.1 mg/dL (0-0.2); Bilirubin Total 0.2 mg/dL (0.2-1.0); Glucose Level 87 mg/dL (74-106); Protein, Total 7.4 g/dL (6.4-8.2); Sodium Level 143 mmol/L (136-145)
[2018-02-24 01:13] LABS: Urine Blood NEGATIVE (NEG); Urine Glucose NEGATIVE (NEG); Urine Protein NEGATIVE (NEG); Urine pH 6.5 (5.0-7.0)
[2018-02-24 01:20] LABS: Barbiturates NEGATIVE (NEGATIVE); Benzodiazepines NEGATIVE (NEGATIVE); Cocaine NEGATIVE (NEGATIVE); METHAMPHETAM NEGATIVE (NEGATIVE); Methadone NEGATIVE (NEGATIVE); Opiates NEGATIVE (NEGATIVE); Phencyclidine NEGATIVE (NEGATIVE); THC Cannibis NEGATIVE (NEGATIVE)
--- NOTE | 2018-02-24 06:41 | EKG ---
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
== END 2018-02-24 01:40 | disposition home or self-care (01) ==
LOC: ER 22:57
DX: T50.992A Poisoning by other drugs, medicaments and biological substances, intentional self-harm, initial encounter (principal); F55.8 Abuse of other non-psychoactive substances
CPT/HCPCS: 36415; 80048; 80076; 80307; 80320; 80329; 81003; 85025; 85610; 85730; 93005; 96360; 96361; 99285; J7030

== ENCOUNTER 2019-10-29 12:52 | Emergency (ER) | payer SELFPAY ==
--- OUTSIDE RECORDS SUMMARY | 2019-10-29 13:14 | XMS REPORT | Clinical Summary ---
:1985 Author Organization [facility] Address [address] [place] [id number] Care Team Providers Name Role Phone Asked, Pcp Primary Care Provider Unavailable Allergies No Known Allergies Medications Not on file Active Problems Problem Noted Date Alcohol dependence with alcohol-induced mood disorder 07/11/2017 Social History Tobacco Use Types Packs/Day Years Used Date Current Every Day Smoker Cigarettes 1 Smokeless Tobacco: Never Used Alcohol Use Drinks/Week oz/Week Comments Yes 30 Glasses of wine 30.0 Sex Assigned at Date Recorded Not on file Job Start Date Occupation Industry Not on file Not on file Not on file Travel History Travel Start Travel End No recent travel history available. 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
--- OUTSIDE RECORDS SUMMARY | 2019-10-29 13:15 | XMS REPORT | Continuity of Care Document ---
:[address] [facility] t Address [address] [place] [address] Care Team Providers Name Role Phone UNKNOWN, REFERRING Primary Care Physician Unavailable JASS QUIROGA Attending Clinician Unavailable JN HANDY Attending Clinician Unavailable JASS QUIROGA Admitting Clinician Unavailable JN HANDY Admitting Clinician Unavailable Problems Condition Condition Condition Status Onset Resolution Last Treating Co mments Source Name Details Category Date Date Treatment Clinician Date Alcohol Alcohol Disease Active [place] dependence dependence 2-14 [place] thodi with with 00:00: st alcohol-in alcohol-in 00 duced mood duced mood disorder disorder Allergies, Adverse Reactions, Alerts This patient has no known allergies or adverse reactions. Social History Social Habit Start Date Stop Date Quantity Comments Source History of tobacco Cigarette Smoker [place] use [facility] Sex Assigned At [place] Cigarettes smoked 2017-07-11 2017-07-11 [place] current (pack per 00:00:00 00:00:00 Method) - Reported Alcohol intake 2017-07-11 2017-07-11 Current drinker [place] on 00:00:00 00:00:00 of alcohol Uats[place] (finding) Smoking Status Start Date Stop Date Source Current every day smoker 2017-07-11 00:00:00 [place] Medications This patient has no known medications. Procedures This patient has no known procedures. Encounters Start End Encounter Admission Attending Care Care Encounter Source Date/Time Date/Time Type Type Clinicians Facility Department ID 2017-06-21 2017-06-21 Emergency E JUNAID [facility] MED [id number] [address] 18:20:00 18:20:00 [facility] 2016-09-30 2016-09-30 Emergency E [facility] [id number] Medical 17:18:00 17:18:00 [facility] 2016-09-03 2016-09-05 Inpatient 3 CRIS HANDY DTX [id number] [facility] 20:34:00 23:00:00 JN norman ([facility] nt) 2016-07-30 2016-08-11 Inpatient 2 CRIS HANDY DTX [id number] [place]arsanism 00:02:00 11:02:00 JN norman ([facility] nt) 2016-07-29 2016-07-29 Emergency E [facility] [id number] Medical 16:55:00 16:55:00 [facility] 2016-07-25 2016-07-25 Emergency E [facility] [id number] Medical 16:37:00 16:37:00 [facility] 2016-07-16 2016-07-16 Emergency E [facility] [id number] Medical 11:32:00 11:32:00 [facility] Results Test Description Test Time Test Comments Results Result Comments Source [id number] 2017-06-21 23:39:00 Test Item Value Reference Range Interpretation Comme nts Amphetamine (test code = AMPH) Negative Negative N For diagnostic purposes only, positive result s should always be assessedin c onjunctionwith the patient's m edical history,clinica l examination and otherfindings.T o fulfill legal requirements, a more specific alternate chemi annmarie methodmust be used inorder to obtain a Confirmed tenisha tical result. GC/MS is the pr eferred confirmatory me thod. Barbiturates (test code = CHERYLE) Negative Negative N Benzodiazepine (test code = Negative Negative N SAMANTHA) Cocaine (test code = COCA) Negative Negative N Methadone (test code = MTHD) Negative Negative N Opiates (test code = OPIA) Negative Negative N PCP (test code = PCP) Negative Negative N Propoxyphene (test code = Negative Negative N PROPOX) THC (test code = THC) Negative Negative N Alcohol, Urine (test code = 0.20 g/dL 0.00-0.01 H ETOHU) Urinalysis [id number] 23:37:00 Test Item Value Reference Range Interpretation Comments Color (test code = COLOR) Yellow Yellow,Straw,Pl N yellow Clarity (test code = Clear Clear N CLAR) Specific [place] (test 1.018 1.001-1.035 N code = SPGR) pH (test code = PH) 5.0 5.0-9.0 N Ketone (test code = KET) 5 mg/dL Negative A Glucose (test code = Negative mg/dL Negative N GLUCUR) Protein (test code = Negative mg/dL Negative N PROT) Bilirubin (test code = Negative mg/dL Negative N BILI) Occult Blood (test code = Negative Negative N UDOB) Urobilinogen (test code = 0.2 mg/dL 0.2-1.0 N UROB) Nitrite (test code = NIT) Negative Negative N Leuk Esterase (test code Negative Negative N = LEUK) Micros Exam (test code = Indicated MEXAM) Epithelial Cells (test None /LPF 0-30 A code = EPI) WBC, Urine (test code = None seen /HPF 0-5 A UWBC) RBC, Urine (test code = None Seen /HPF 0-5 A URBC) Bacteria (test code = None /HPF BACT) Alcohol/Ethanol, [id number] 20:42:00 Test Item Value Reference Range Interpretation Comments Alcohol, Ethyl 0.21 g/dL 0.00-0.01 H Intoxicated 0.080 g/dL (test code = ETOH) or more Comprehensive Metabolic [id number] 20:42:00 Test Item Value Reference Range Interpretation Comments Sodium (test code = 144 mmol/L 135-145 N NA) Potassium (test 4.0 mmol/L 3.5-5.1 N code = K) Chloride (test code 100 mmol/L 98-105 N = CL) Carbon Dioxide 31 mmol/L 22-29 H (test code = CO2) Glucose (test code 94 mg/dL 70-115 N = GLU) Blood Urea Nitrogen 14 mg/dL 6-20 N (test code = BUN) Creatinine (test 1.0 mg/dL 0.7-1.2 N code = CREAT) Calcium (test code 9.8 mg/dL 8.3-10.5 N = CA) Prot Total (test 8.7 g/dL 6.4-8.3 H code = TP) Albumin (test code 5.2 g/dL 3.5-5.2 N = ALB) A/G Ratio (test 1.5 Ratio code = AGRATIO) Globulin (test code 3.5 2.9-3.1 H = GLOB) Bili Total (test 0.2 mg/dL 0.1-0.9 N code = TBIL) Alk Phos (test code 83 U/L 40-129 N = APHOS) AST (test code = 20 U/L 1-40 N AST) ALT (test code = 23 U/L 1-41 N ALT) BUN/Creatinine 14.0 Ratio (test code = BCRATIO) Anion Gap (test 13 mmol/L 7-16 N code = AGAP) Estimated GFR (test >60 eGFR (es timated code = GFR) mL/min/1.73m2 Glomerular Nabor tration Rate) is an est imated value,calculate d from the patient's s [place] creatinine usin g the MDRD equation.I t is NOT the patient 's actual GFR. The eGFR provides a more clinicallyusefu l measure of kidn ey disease than se rum creatinine alone.This calculation jose es sex and race into account, if the informationis provided. If th e race is not provided , and the patient isAfrican-Ameri can, multiply by 1.2 12. If sex is not prov ided, and thepatient is female, multipl y by 0.742. Results for patients <18 ye ars ofage have not been validated by e MDRD study and scooby cloin be interpretedwith caution.eGFR Re sult Interpretation: eGFR > or = 60 is in t he Normal RangeeGF R < 60 may mean kidney diseaseeGFR < 1 5 may mean kidney failureRange s recommended by the National Kidney Foundation,http ://nkd ep.nih.gov [id number] 20:42:00 Test Item Value Reference Range Interpretation Comments Salicylate (test code <0.3 mg/dL 0.3-10.0 L Teresa nge in unit of = SALI) measurement for Salicylate ( fr om ug/mL to mg/dL ) [id number] 20:42:00 Test Item Value Reference Range Interpretation Comments Acetaminophen (test code = ACET) <15.0 ug/mL 15.0-30.0 L CBC with [id number] 20:23:00 Test Item Value Reference Range Interpretation Comments WBC (test code = WBC) 4.6 K/cumm 4.4-10.5 N RBC (test code = RBC) 5.57 M/cumm 4.10-5.70 N Hemoglobin (test code = HGB) 16.9 gm/dL 13.4-17.4 N Hematocrit (test code = HCT) 48.8 % 38.7-52.0 N MCV (test code = MCV) 87.6 fL 80-100 N MCH (test code = MCH) 30.4 pg 27.0-32.5 N MCHC (test code = MCHC) 34.7 g/dL 32.0-37.5 N RDW (test code = RDW) 14.1 % 11.5-14.5 N Platelet Count (test code = 331 K/cumm 140-440 N PLTCT) MPV (test code = MPV) 8.7 fL Diff Method (test code = DIFFM) Auto Neutrophil (test code = NEUT) 57.5 % 36-70 N Lymphocyte (test code = LYMPH) 35.7 % 12-44 N Monocyte (test code = MONO) 4.1 % 0-11 N Eosinophil (test code = EOS) 1.5 % 0-7 N Basophil (test code = BASO) 1.1 % 0-2 N Neutro Abs (test code = ANEUT) 2.7 K/cumm 1.6-7.4 N Lymph Abs (test code = ALYMPH) 1.6 K/cumm 0.5-4.6 N [place] Abs (test code = AMONO) 0.2 K/cumm 0.0-1.2 N Eos Abs (test code = AEOS) 0.07 K/cumm 0.00-0.74 N Baso Abs (test code = ABASO) 0.1 K/cumm 0.00-0.21 N SYPHILIS (T. PALLIDUM) [id number] 15:33:00 Test Item Value Reference Range Interpretation Comments SCRN SYP (test NONREACTIVE NONREACTIVE Spyhilis IGG is a code = SCRN SYP) screening t est only. All REACTIVE result s kayleigh be confirmed by ad ditional testing. CREATINE [id number] 10:11:00 Test Item Value Reference Range Interpretation Comments CK (test code = CK) 417 U/L 55-170 H THYROID STIMULATION [id number] 01:57:00 Test Item Value Reference Range Interpretation Comments TSH (test code = TSH) 0.63 UIU/ML 0.465-4.68 [id number] 01:18:00 Test Item Value Reference Range Interpretation Comments MG (test code = MG) 2.5 mg/dL 1.6-2.3 H [id number] 01:18:00 Test Item Value Reference Range Interpretation Comments PHOSPHOR (test code = PHOSPHOR) 2.6 MG/DL 2.5-4.5 PROTHROMBIN TIME WITH [id number] 01:04:00 Test Item Value Reference Range Interpretation Comments PROTHROMBIN TIME 11.8 SECONDS 12.0-14.6 L INR Usual R ac = 2 (test code = PT) to 3 for pr evention of deep vein thrombosis (DVT ) INR (test code = INR) 0.8 XR CHEST SGL 1V, [id number] 18:23:21CHEST SINGLE VIEW:REASON FOR STUDY: PSYCH SCREENINGFINDINGS:Cardiomediastinal structures are within normal limits. No pleural fluidor pulmonary infiltrates are identified. The bony architecture appearsintact, where adequately seen.IMPRESSION: No active cardiopulmonary process is identified.XR CHEST SGL 1V, [id number] 17:07:24Information: Psychosis and smoking historyCOMPARISON: NoneCHEST:Cardiomediastinal structures are within normal limits. No pleural fluidor pulmonary infiltrates are identified. The bony architecture appearsintact, where adequately seen.
[2019-10-29] MEDS ORDERED: KETOROLAC 30 MG/ML INJ ONE (16:54)
--- NOTE | 2019-10-29 17:02 | RAD REPORT ---
EXAM DESCRIPTION: US - Scrotum Testicles - 10/29/2019 4:42 pm CLINICAL HISTORY: left testicle pain COMPARISON: No comparisons FINDINGS: No mass present in either testicle. Doppler evaluation shows normal blood flow within each testicle. No epididymis hyperemia, mass or cyst. Patient does have a small left varicocele. Small le ft hydrocele is also present. No scrotal wall thickening or edema. IMPRESSION: Small left varicocele is present. No other significant findings.
--- NOTE | 2019-10-29 17:18 | ER ---
Nurse's Notes [facility] Name: Shreyas Graves Age: 34 yrs Sex: Male : 1985 Arrival Date: 10/29/2019 Time: 12:54 Bed 26 Private MD: Diagnosis: Left testicle pain Presentation: 10/28 13:02 Chief complaint: Patient states: groin pain x 3 months, joint pains. Reports that the sv pain is "making me drink." Pt reports last drink was 0800 today and denies DT hx. Pt is on an abx. Coronavirus screen: Proceed with normal triage. Patient denies a cough. Patient denies shortness of breath or difficulty breathing. Patient denies measured and/or subjective temperature greater than 100.4F prior to today's visit. Patient denies travel on a cruise ship or to a country the [facility] currently lists as an affected area. Patient denies contact with known and/or suspected case of COVID-19. Ebola Screen: No symptoms or risks identified at this time. Risk Assessment: Do you want to hurt yourself or someone else? Patient reports no desire to harm self or others. Onset of symptoms was July 2019. 13:02 Method Of Arrival: Ambulatory sv 13:02 Acuity: BRUNO 3 sv 13:05 Initial Sepsis Screen: Does the patient meet any 2 criteria? HR > 90 bpm. No. Patient's sv initial sepsis screen is negative. Does the patient have a suspected source of infection? No. Patient's initial sepsis screen is negative. Historical: - Allergies: 13:03 No Known Allergies; sv - PMHx: 13:03 Depression; sv - PSHx: 13:03 left hand; right hand; sv - Social history:: Smoking status: Patient reports the use of cigarette tobacco products, Patient uses alcohol, on a daily basis. last drink was this morning. Assessment: 19:13 Reassessment: PT LEFT WITHOUT NOTIFYING NURSE WHILE I WAS PREPARING HIS MEDICATIONS. I ls4 LOOKED ALL OVER FOR PATIENT AND FINALLY CALLED HIS EMERGENCY CONTACT NUMBER. MITUL, WHO STATED THEY LEFT BECAUSE HE NEEDED TO SMOKE A CIGARETTE AND ARE TOO FAR AWAY TO COME BACK NOW. Vital Signs: 13:05 BP 118 / 78; Pulse 101; Resp 16; Temp 98.5; Weight 83.91 kg; Height 5 ft. 11 in. sv (180.34 cm); 13:05 Body Mass Index 25.80 (83.91 kg, 180.34 cm) sv ED Course: 12:54 Patient arrived in ED. ag5 13:03 Triage completed. sv 13:03 Arm band placed on. sv 15:04 Kristin Brown, RN is Primary Nurse. ls4 15:12 Preet Hunt PA is PHCP. cp 15:12 Ravi Murillo MD is Attending Physician. cp 16:41 US Scrotum Testicles In Process Unspecified. EDMS 17:14 Judy Anthony MD is Referral Physician. cp Administered Medications: 16:50 Drug: TORadol 30 mg Route: IM; Site: left deltoid; ls4 Outcome: 17:18 Discharge ordered by MD. cp 18:05 Patient left the ED. ls4 18:05 Eloped from patient exam room, after seeing physician Time discovered patient gone: ls4 October 29, 2019 at 17:55 18:05 unknown Signatures: Dispatcher [employer] EDKY Lakshmi Santos RN RN Preet Hunt PA PA cp Kristin Brown, RN RN ls4 Farhan Robertson ag5 Corrections: (The following items were deleted from the chart) 13:07 13:02 Chief complaint: Patient states: groin pain x 3 months, joint pains. [facility]
--- NOTE | 2019-10-29 17:18 | EDPHYS ---
Physician Documentation [facility] Name: Shreyas Graves Age: 34 yrs Sex: Male : 1985 Arrival Date: 10/29/2019 Time: 12:54 Bed 26 Private MD: ED Physician Ravi Murillo HPI: 10/28 15:25 This 34 yrs old Male presents to ER via Ambulatory with complaints of Groin cp Pain. 15:25 The patient presents with tenderness, of the left testicle and left groin. Onset: The cp symptoms/episode began/occurred 3 month(s) ago. Associated signs and symptoms: Pertinent negatives: dysuria, fever, hematuria, penile discharge. Severity of symptoms: in the emergency department the symptoms are unchanged, despite home interventions. Patient reports he is currently taking prescribed Levaquin times 1 week and continues to have left testicle and groin pain. Patient c/o swollen gland and joint pain. Historical: - Allergies: 13:03 No Known Allergies; sv - PMHx: 13:03 Depression; sv - PSHx: 13:03 left hand; right hand; sv - Social history:: Smoking status: Patient reports the use of cigarette tobacco products, Patient uses alcohol, on a daily basis. last drink was this morning. ROS: 15:30 Constitutional: Negative for body aches, chills, fever. cp 15:30 Respiratory: Negative for cough, shortness of breath. cp 15:30 Abdomen/GI: Negative for abdominal pain, nausea, vomiting, and diarrhea. 15:30 Back: Negative for pain at rest, pain with movement, radiated pain. 15:30 : Positive for testicular pain Negative for urinary symptoms, penile discharge, penile pain. 15:30 Skin: Negative for rash. 15:30 All other systems are negative. Exam: 15:40 Constitutional: The patient appears in no acute distress, alert, awake, non-toxic, well cp developed, well nourished. 15:40 Head/Face: Normocephalic, atraumatic. cp 15:40 Eyes: Periorbital structures: appear normal, Conjunctiva: normal, no exudate, no injection, Sclera: no appreciated abnormality, Lids and lashes: appear normal, bilaterally. 15:40 ENT: External ear(s): are unremarkable, Nose: is normal, Mouth: is normal, Posterior pharynx: is normal, airway is patent, no erythema, no exudate. 15:40 Chest/axilla: Inspection: normal, Palpation: is normal, no crepitus, no tenderness. 15:40 Cardiovascular: Rate: tachycardic, Rhythm: regular. 15:40 Respiratory: the patient does not display signs of respiratory distress, Respirations: normal. 15:40 Abdomen/GI: Inspection: abdomen appears normal, Bowel sounds: active, all quadrants, Palpation: abdomen is soft and non-tender, in all quadrants, Hernia: not appreciated. 15:40 : Male external genitalia: Circumcision noted. penile discharge, is absent, swelling: is not appreciated, tenderness, that is mild, left testicle, no rashes or lesions noted, Sexual behavior: the patient is sexually active. Vital Signs: 13:05 BP 118 / 78; Pulse 101; Resp 16; Temp 98.5; Weight 83.91 kg; Height 5 ft. 11 in. sv (180.34 cm); 13:05 Body Mass Index 25.80 (83.91 kg, 180.34 cm) sv MDM: 15:16 Patient medically screened. cp 15:30 Differential diagnosis: UTI, prostatitis, urethritis, STD, testicular torsion, cp epididymitis. 17:18 Data reviewed: vital signs, nurses notes, lab test result(s), radiologic studies, cp ultrasound, and as a result, I will discharge patient. 17:18 Counseling: I had a detailed discussion with the patient and/or guardian regarding: the cp historical points, exam findings, and any diagnostic results supporting the discharge/admit diagnosis, lab results, radiology results, the need for outpatient follow up, a urologist, to return to the emergency department if symptoms worsen or persist or if there are any questions or concerns that arise at home. Response to treatment: the patient's symptoms have markedly improved after treatment, and as a result, I will discharge patient. ED course: VSS. Will have patient stop Levaquin and start Doxycycline. No sexual intercourse during treatment. Will discharge to home for continued monitoring. 10/28 15:17 Order name: GC (GONORR/CHLAMYDIA) Probe cp 10/28 15:19 Order name: Urine Microscopic Only; Complete Time: 17:55 cp 10/28 15:17 Order name: US Scrotum Testicles; Complete Time: 17:11 cp 10/28 17:13 Interpretation: Report reviewed. cp 10/28 17:29 Order name: Urine Dipstick--Ancillary (enter results); Complete Time: 17:55 bd 10/28 17:55 Interpretation: Normal except: UBLD TRACE. cp 10/28 15:19 Order name: Urine Dipstick-Ancillary (obtain specimen): obtain after GC/chlamydia awab cp performed; Complete Time: 17:43 Administered Medications: 16:50 Drug: TORadol 30 mg Route: IM; Site: left deltoid; ls4 Disposition: 17:30 Chart complete. cp 10/29 09:10 Co-signature as Attending Physician, Ravi Murillo MD I agree with the assessment and kdr plan of care. Disposition: 10/29/19 17:18 Discharged to Home. Impression: Left testicle pain. - Condition is Stable. - Prescriptions for Doxycycline Hyclate 100 mg Oral Tablet - take 1 tablet by ORAL route every 12 hours; 20 tablet. Naprosyn 500 mg Oral Tablet - take 1 tablet by ORAL route 2 times per day take with food; 20 tablet. - Medication Reconciliation Form, Thank You Letter, Antibiotic Education, Prescription Opioid Use form. - Follow up: Judy Anthony MD; When: 1 week; Reason: pain continues. - Problem is an ongoing problem. - Symptoms have improved. - Notes: Stop Levaquin and start Doxycycline. Do not have sexual intercourse during treatment and while taking antibiotics Signatures: Dispatcher [employer] Lakshmi Fuller RN RN Ravi Murillo MD MD [facility] Preet Hunt PA PA Kristin Brown RN RN ls4 Corrections: (The following items were deleted from the chart) 10/28 18:05 17:18 10/29/2019 17:18 Discharged to Home. Impression: Left testicle pain. Condition is ls4 Stable. Forms are Medication Reconciliation Form, Thank You Letter, Antibiotic Education, Prescription Opioid Use. Follow up: Judy Anthony; When: 1 week; Reason: pain continues. Problem is an ongoing problem. Symptoms have improved. cp 10/29 15:44 10/28 15:30 Differential diagnosis: UTI, STD, orchitis, epididymitis, testicular cp torsion cp 10/29 15:56 10/28 15:40 Abdomen/GI: Inspection: abdomen appears normal, Bowel sounds: active, all cp quadrants, Palpation: abdomen is soft and non-tender, in all quadrants, cp
[2019-10-29 17:40] LABS: Urine Blood TRACE (NEG); Urine Glucose NEGATIVE (NEG); Urine Protein NEGATIVE (NEG); Urine Specific Gravity 1.025 (1.005-1.030)
[2019-10-29 17:50] LABS: Urine Bacteria <20 /HPF (NONE SEEN); Urine RBC <5 /HPF (NONE SEEN)
[2019-10-29 17:51] LABS: Urine Culture Reflex Order NOT NEEDED
[2019-10-29] MEDS ORDERED: CEFTRIAXONE 250 MG/VIAL ONE (18:07)
[2019-10-29] MEDS ORDERED: LIDOCAINE 1% MPF 2 ML AMPULE ONE (18:07)
[2019-10-29] MEDS ORDERED: AZITHROMYCIN 250 MG TAB ONE (18:07)
[2019-10-29 18:19] VITALS: BP 118/78; TEMP 98.5
[2019-11-02 06:56] LABS: C.trachomatis RNA,TMA Not Detected (Not Detected)
== END 2019-10-29 18:05 | disposition home or self-care (01) ==
LOC: ER 12:52
DX: N50.812 Left testicular pain (principal); F17.210 Nicotine dependence, cigarettes, uncomplicated
CPT/HCPCS: 76870; 81003; 81015; 87490; 87590; 96372; 99283; J0696; J2001

== ENCOUNTER 2019-10-29 19:12 | Emergency (ER) | payer SELFPAY ==
--- OUTSIDE RECORDS SUMMARY | 2019-10-29 19:15 | XMS REPORT | Clinical Summary ---
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
--- OUTSIDE RECORDS SUMMARY | 2019-10-29 19:15 | XMS REPORT | Continuity of Care Document ---
:1985 Author Organization [facility] t Address [address] [place] [address] Care Team Providers Name Role Phone UNKNOWN, REFERRING Primary Care Physician Unavailable JASS QUIROGA Attending Clinician Unavailable JN HANDY Attending Clinician Unavailable JASS QUIROGA Admitting Clinician Unavailable JN HANDY Admitting Clinician Unavailable Problems Condition Condition Condition Status Onset Resolution Last Treating Co mments Source Name Details Category Date Date Treatment Clinician Date Alcohol Alcohol Disease Active [place] dependence dependence 2-14 [place] thodi with with 00:00: st alcohol-in alcohol-in 00 duced mood duced mood disorder disorder Allergies, Adverse Reactions, Alerts This patient has no known allergies or adverse reactions. Social History Social Habit Start Date Stop Date Quantity Comments Source History of tobacco Cigarette Smoker [place] use [facility] Sex Assigned At [facility] Cigarettes smoked 2017-07-11 2017-07-11 [place] current (pack per 00:00:00 00:00:00 Method) - Reported Alcohol intake 2017-07-11 2017-07-11 Current drinker [place] on 00:00:00 00:00:00 of alcohol [facility] (finding) Smoking Status Start Date Stop Date Source Current every day smoker 2017-07-11 00:00:00 [place] [facility] Medications This patient has no known medications. Procedures This patient has no known procedures. Encounters Start End Encounter Admission Attending Care Care Encounter Source Date/Time Date/Time Type Type Clinicians Facility Department ID 2017-06-21 2017-06-21 Emergency E [facility] MED [id number] 18:20:00 18:20:00 [facility] 2016-09-30 2016-09-30 Emergency E [facility] [id number] Medical 17:18:00 17:18:00 [facility] 2016-09-03 2016-09-05 Inpatient 3 CRIS HANDY [id number] [id number] Orthodox 20:34:00 23:00:00 JN norman ([facility] nt) 2016-07-30 2016-08-11 Inpatient 2 CRIS HANDY DTX [id number] Orthodox 00:02:00 11:02:00 JN norman ([facility] nt) 2016-07-29 2016-07-29 Emergency E [facility] [id number] Medical 16:55:00 16:55:00 [facility] 2016-07-25 2016-07-25 Emergency E [facility] [id number] Medical 16:37:00 16:37:00 [facility] 2016-07-16 2016-07-16 Emergency E [facility] [id number] Medical 11:32:00 11:32:00 [facility] Results Test Description Test Time Test Comments [...] = 0.20 g/dL 0.00-0.01 H ETOHU) Urinalysis [id number] 23:37:00 Test Item Value Reference Range Interpretation Comments Color (test code = COLOR) Yellow Yellow,Straw,Pl N yellow Clarity (test code = Clear Clear N CLAR) Specific [facility] (test 1.018 1.001-1.035 N code = SPGR) [...] (test code = None /HPF BACT) Alcohol/Ethanol, [id number] 20:42:00 Test Item Value Reference Range Interpretation Comments Alcohol, Ethyl 0.21 g/dL 0.00-0.01 H Intoxicated 0.080 g/dL (test code = ETOH) or more Comprehensive Metabolic [id number] 20:42:00 Test Item Value Reference Range Interpretation [...] validated by e MDRD study and scooby colin be interpretedwith caution.eGFR Re sult Interpretation: eGFR > or = 60 is in t he Normal RangeeGF R < 60 may mean kidney diseaseeGFR < 1 5 may mean kidney failureRange s recommended by the National Kidney Foundation,http ://nkd ep.nih.gov [id number] 20:42:00 Test Item Value Reference Range Interpretation Comments Salicylate (test code <0.3 mg/dL 0.3-10.0 L Teresa nge in unit of = SALI) measurement for Salicylate ( fr om ug/mL to mg/dL ) [id number] 20:42:00 Test Item Value Reference Range Interpretation Comments Acetaminophen (test code = ACET) <15.0 ug/mL 15.0-30.0 L CBC with [id number] 20:23:00 Test Item Value Reference Range Interpretation [...] code = ALYMPH) 1.6 K/cumm 0.5-4.6 N [place] Abs (test code = AMONO) 0.2 K/cumm 0.0-1.2 N Eos Abs (test code = AEOS) 0.07 K/cumm 0.00-0.74 N Baso Abs (test code = ABASO) 0.1 K/cumm 0.00-0.21 N SYPHILIS (T. PALLIDUM) [id number] 15:33:00 Test Item Value Reference Range Interpretation Comments SCRN SYP (test NONREACTIVE NONREACTIVE Spyhilis IGG is a code = SCRN SYP) screening t est only. All REACTIVE result s kayleigh be confirmed by ad ditional testing. CREATINE [id number] 10:11:00 Test Item Value Reference Range Interpretation Comments CK (test code = CK) 417 U/L 55-170 H THYROID STIMULATION [id number] 01:57:00 Test Item Value Reference Range Interpretation Comments TSH (test code = TSH) 0.63 UIU/ML 0.465-4.68 [id number] 01:18:00 Test Item Value Reference Range Interpretation Comments MG (test code = MG) 2.5 mg/dL 1.6-2.3 H [id number] 01:18:00 Test Item Value Reference Range Interpretation Comments PHOSPHOR (test code = PHOSPHOR) 2.6 MG/DL 2.5-4.5 PROTHROMBIN TIME WITH [id number] 01:04:00 Test Item Value Reference Range Interpretation Comments PROTHROMBIN TIME 11.8 SECONDS 12.0-14.6 L INR Usual R ac = 2 (test code = PT) to 3 for pr evention of deep vein thrombosis (DVT ) INR (test code = INR) 0.8 XR CHEST SGL 1V, [id number] 18:23:21CHEST SINGLE VIEW:REASON FOR STUDY: PSYCH SCREENINGFINDINGS:Cardiomediastinal structures are within normal limits. No pleural fluidor pulmonary infiltrates are identified. The bony architecture appearsintact, where adequately seen.IMPRESSION: No active cardiopulmonary process is identified.XR CHEST SGL 1V, [id number] 17:07:24Information: Psychosis and smoking historyCOMPARISON: NoneCHEST:Cardiomediastinal structures are within normal limits. No pleural fluidor pulmonary infiltrates are identified. The bony architecture appearsintact, where adequately seen.
--- NOTE | 2019-10-29 19:56 | ER ---
Nurse's Notes [facility] Name: Shreyas Graves Age: 34 yrs Sex: Male : 1985 Arrival Date: 10/29/2019 Time: 19:13 Bed 12 Private MD: Diagnosis: Left testicle pain Presentation: 10/28 19:19 Chief complaint: Patient states: L testicular pain since 3 months ago. Reports swelling ca1 with lifting. Was here in the ER and eloped. States, "I need to know what the results with the tests done and what medications they are providing". Coronavirus screen: Proceed with normal triage. Patient denies a cough. Patient denies shortness of breath or difficulty breathing. Patient denies measured and/or subjective temperature greater than 100.4F prior to today's visit. Patient denies travel on a cruise ship or to a country the [facility] currently lists as an affected area. Patient denies contact with known and/or suspected case of COVID-19. Ebola Screen: Patient negative for fever greater than or equal to 101.5 degrees Fahrenheit, and additional compatible Ebola Virus Disease symptoms Patient denies exposure to infectious person. Patient denies travel to an Ebola-affected area in the 21 days before illness onset. No symptoms or risks identified at this time. Initial Sepsis Screen: Does the patient meet any 2 criteria? No. Patient's initial sepsis screen is negative. Does the patient have a suspected source of infection? No. Patient's initial sepsis screen is negative. Risk Assessment: Do you want to hurt yourself or someone else? Patient reports no desire to harm self or others. Onset of symptoms was October 29, 2019. 19:19 Method Of Arrival: Ambulatory ca1 19:19 Acuity: BRUNO 5 ca1 Historical: - Allergies: 19:24 No Known Allergies; ca1 - Home Meds: 19:24 None [Active]; ca1 - PMHx: 19:24 Depression; ca1 - PSHx: 19:24 left hand; right hand; ca1 - Immunization history:: Adult Immunizations up to date. - Social history:: Smoking status: Patient reports the use of cigarette tobacco products, smokes one-half pack cigarettes per day. Screenin:19 Abuse screen: Denies threats or abuse. Denies injuries from another. Nutritional sg screening: No deficits noted. Tuberculosis screening: No symptoms or risk factors identified. Never had TB. Fall Risk None identified. Assessment: 19:19 Reassessment: Patient appears in no apparent distress at this time. pt ambulatory with sg steady gait carrying a backpack to exam room 12, reports no changes from his visit, hes requesting his medication and discharge paper work at this time. Vital Signs: 19:19 BP 112 / 74; Pulse 110; Resp 17 S; Temp 98.1(O); Pulse Ox 97% on R/A; Weight 83.91 kg ca1 (R); Height 5 ft. 11 in. (180.34 cm) (R); Pain 6/10; 19:19 Body Mass Index 25.80 (83.91 kg, 180.34 cm) ca1 ED Course: 19:13 Patient arrived in ED. ds1 19:19 Patient has correct armband on for positive identification. Bed in low position. Call sg light in reach. Side rails up X2. Pulse ox on. NIBP on. Warm blanket given. Head of bed elevated. 19:23 Triage completed. ca1 19:24 Arm band placed on right wrist. ca1 19:32 Preet Hunt PA is PHCP. cp 19:32 Preet Owens MD is Attending Physician. cp 19:54 Judy Anthony MD is Referral Physician. cp 19:57 No provider procedures requiring assistance completed. Patient did not have IV access sg during this emergency room visit. Administered Medications: 19:40 Drug: Zithromax 1 grams {Note: medication administered by Kristin BAILEY.} Route: PO; sg 19:55 Follow up: Response: No adverse reaction sg 19:40 Drug: Rocephin (cefTRIAXone) 250 mg {Note: medication administered by Kristin BAILEY.} Route: sg IM; Site: right deltoid; 19:55 Follow up: Response: No adverse reaction sg Outcome: 19:55 Discharge ordered by MD. cp 19:57 Patient left the ED. sg 19:57 Discharged to home ambulatory, with family. sg 19:57 Condition: good 19:57 Discharge instructions given to patient, Instructed on discharge instructions, follow up and referral plans. medication usage, safety practices, Demonstrated understanding of instructions, follow-up care, medications, Prescriptions given X 2, these prescriptions are from a previous visit about 30 mins prior to this discharge, please see previous chart Signatures: Chad Auguste RN RN sg Krystal Baumann ds1 Preet Hunt PA PA cp Jessica Swain RN RN ca1 Corrections: (The following items were deleted from the chart) 10/29 04:10/28 19:57 Patient left the ED. matt gutierrez 10/29 04:10/28 20:00 Patient left the ED. matt gutierrez
--- NOTE | 2019-10-29 19:56 | EDPHYS ---
Physician Documentation [facility] Name: Shreyas Graves Age: 34 yrs Sex: Male : 1985 Arrival Date: 10/29/2019 Time: 19:13 Bed 12 Private MD: JOLANTA Physician Preet Owens HPI: 10/28 19:45 This 34 yrs old Male presents to ER via Ambulatory with complaints of cp Testicular Pain - L. 19:45 The patient presents with tenderness, left testicle, groin area. cp 19:45 Patient returns to ED after leaving earlier today without receiving treatment and cp discharge paperwork. Patient with same complaint as previous visit today. Historical: - Allergies: 19:24 No Known Allergies; ca1 - Home Meds: 19:24 None [Active]; ca1 - PMHx: 19:24 Depression; ca1 - PSHx: 19:24 left hand; right hand; ca1 - Immunization history:: Adult Immunizations up to date. - Social history:: Smoking status: Patient reports the use of cigarette tobacco products, smokes one-half pack cigarettes per day. ROS: 19:47 Eyes: Negative for injury, pain, redness, and discharge. cp 19:47 Constitutional: Negative for body aches, chills, fever. 19:47 Respiratory: Negative for cough, shortness of breath, wheezing. 19:47 Abdomen/GI: Negative for abdominal pain, nausea, vomiting, and diarrhea. 19:47 : Positive for testicular pain groin pain. 19:47 All other systems are negative. Exam: 19:50 Constitutional: The patient appears in no acute distress, alert, awake, non-toxic, well cp developed, well nourished. 19:50 Cardiovascular: Rate: tachycardic. cp 19:50 Respiratory: the patient does not display signs of respiratory distress, Respirations: normal. 19:50 Abdomen/GI: Exam negative for discomfort, distension, guarding, Inspection: abdomen appears normal, Hernia: not appreciated. 19:50 : Male external genitalia: Circumcision noted. tenderness, of the left testicle is noted, that is mild. 19:50 Skin: no rash present. Vital Signs: 19:19 BP 112 / 74; Pulse 110; Resp 17 S; Temp 98.1(O); Pulse Ox 97% on R/A; Weight 83.91 kg ca1 (R); Height 5 ft. 11 in. (180.34 cm) (R); Pain 6/10; 19:19 Body Mass Index 25.80 (83.91 kg, 180.34 cm) ca1 MDM: 19:32 Patient medically screened. 19:55 Data reviewed: vital signs, nurses notes, and as a result, I will discharge patient. 19:55 Counseling: I had a detailed discussion with the patient and/or guardian regarding: the cp historical points, exam findings, and any diagnostic results supporting the discharge/admit diagnosis, lab results, radiology results, the need for outpatient follow up, a urologist, to return to the emergency department if symptoms worsen or persist or if there are any questions or concerns that arise at home. Administered Medications: 19:40 Drug: Zithromax 1 grams {Note: medication administered by Kristin BALIEY.} Route: PO; sg 19:55 Follow up: Response: No adverse reaction 19:40 Drug: Rocephin (cefTRIAXone) 250 mg {Note: medication administered by Kristin BAILEY.} Route: sg IM; Site: right deltoid; 19:55 Follow up: Response: No adverse reaction Disposition: 20:05 Chart complete. 10/29 09:00 Co-signature as Attending Physician, Preet Owens MD I agree with the assessment and [facility] plan of care. Disposition: 10/29/19 19:55 Discharged to Home. Impression: Left testicle pain. - Condition is Stable. - Prescriptions for Naprosyn 500 mg Oral Tablet - take 1 tablet by ORAL route 2 times per day take with food; 20 tablet. Doxycycline Hyclate 100 mg Oral Tablet - take 1 tablet by ORAL route every 12 hours; 20 tablet. - Medication Reconciliation Form, Thank You Letter, Antibiotic Education, Prescription Opioid Use form. - Follow up: Judy Anthony MD; When: 1 week; Reason: pain continues. - Problem is an ongoing problem. - Symptoms have improved. - Notes: Stop Levaquin and start Doxycycline. No sexual intercourse while taking antibiotics Signatures: Chad Auguste RN Preet Matthew MD MD cha Page, Corey, PA PA Jessica Swain RN RN ca1 Corrections: (The following items were deleted from the chart) 10/28 19:57 19:55 10/29/2019 19:55 Discharged to Home. Impression: Left testicle pain. Condition is sg Stable. Forms are Medication Reconciliation Form, Thank You Letter, Antibiotic Education, Prescription Opioid Use. Follow up: Judy Anthony; When: 1 week; Reason: pain continues. Problem is an ongoing problem. Symptoms have improved. cp 20:00 19:57 10/29/2019 19:55 Discharged to Home. Impression: Left testicle pain. Condition is sg Stable. Prescriptions for Naprosyn 500 mg Oral Tablet - take 1 tablet by ORAL route 2 times per day take with food; 20 tablet, Doxycycline Hyclate 100 mg Oral Tablet - take 1 tablet by ORAL route every 12 hours; 20 tablet. and Forms are Medication Reconciliation Form, Thank You Letter, Antibiotic Education, Prescription Opioid Use. Follow up: Judy Anthony; When: 1 week; Reason: pain continues. Problem is an ongoing problem. Symptoms have improved. sg
[2019-10-29 20:02] VITALS: BP 112/74; TEMP 98.1; O2SAT 97
== END 2019-10-29 20:00 | disposition home or self-care (01) ==
LOC: ER 19:12
DX: N50.812 Left testicular pain (principal); F17.210 Nicotine dependence, cigarettes, uncomplicated
CPT/HCPCS: 96372; 99283

== ENCOUNTER 2019-12-01 16:48 | Emergency (ER) | payer SELFPAY ==
--- OUTSIDE RECORDS SUMMARY | 2019-12-01 18:22 | XMS REPORT | Clinical Summary ---
:1985 Author Organization [facility] Address [address] [place] [id number] Care Team Providers Name Role Phone Asked, [...] Not on file Results Not on fileafter 11/30/2018 Advance Directives For more information, please contact: [phone] Type Date Recorded Patient Claims Correspondence Clerk Explanati on Advance Directives, Living Will 07/11/2017 8:19 PM and Medical Power of Floor Cashier
--- OUTSIDE RECORDS SUMMARY | 2019-12-01 18:22 | XMS REPORT | Continuity of Care Document ---
:1985 Author Organization [facility] t Address [address] [place] [address] Care Team Providers Name Role Phone UNKNOWN Primary Care Physician Unavailable JUNAID Attending Clinician Unavailable HANDY Attending Clinician Unavailable JUNAID Admitting Clinician Unavailable HANDY Admitting Clinician Unavailable Problems Condition Condition Condition Status Onset Resolution Last Treating Co mments Source Name Details Category Date Date Treatment Clinician Date Alcohol Alcohol Disease Active [place] dependence dependence 2-14 Me thodi with with 00:00: st alcohol-in alcohol-in 00 duced mood duced mood disorder disorder Allergies, Adverse Reactions, Alerts This patient has no known allergies or adverse reactions. Social History Social Habit Start Date Stop Date Quantity Comments Source History of tobacco Cigarette Smoker [place] use Islam Sex Assigned At [place] Islam Cigarettes smoked 2017-07-11 2017-07-11 [place] current (pack per 00:00:00 00:00:[address] day) - Reported Alcohol intake 2017-07-11 2017-07-11 Current drinker [place] on 00:00:00 00:00:00 of alcohol Islam (finding) Smoking Status Start Date Stop Date Source Current every day smoker 2017-07-11 00:00:00 Jackson mcdowell Islam Medications This patient has no known medications. Procedures This patient has no known procedures. Encounters Start End Encounter Admission Attending Care Care Encounter Source Date/Time Date/Time Type Type Clinicians Facility Department ID 2017-06-21 2017-06-[address] [facility] MED [id number] St. 18:20:00 18:20:00 [facility] 2016-09-30 2016-09-30 Emergency E [facility] [id number] Medical 17:18:00 17:18:00 [facility] 2016-09-03 2016-09-05 Inpatient 3 CRIS HANDY DTX [id number] Sikh 20:34:00 23:00:00 JN norman ([facility] nt) 2016-07-30 2016-08-11 Inpatient 2 CRIS HANDY DTX [id number] Sikh 00:02:00 11:02:00 JN norman ([facility] nt) 2016-07-29 2016-07-29 Emergency E [facility] [id number] Medical 16:55:00 16:55:00 [facility] 2016-07-25 2016-07-25 Emergency E [facility] [id number] Medical 16:37:00 16:37:00 [facility] 2016-07-16 2016-07-16 Emergency E [facility] [id number] Medical 11:32:00 11:32:00 [facility] Results Test Description Test Time Test [...] = 0.20 g/dL 0.00-0.01 H ETOHU) Urinalysis [id number] 23:37:00 Test Item Value Reference Range Interpretation Comments Color (test code = COLOR) Yellow Yellow,Straw,Pl N yellow Clarity (test code = Clear Clear N CLAR) Specific [place] (test 1.018 1.001-1.035 N code = SPGR) [...] (test code = None /HPF BACT) Alcohol/Ethanol, [id number] 20:42:00 Test Item Value Reference Range Interpretation Comments Alcohol, Ethyl 0.21 g/dL 0.00-0.01 H Intoxicated 0.080 g/dL (test code = ETOH) or more Comprehensive Metabolic [id number] 20:42:00 Test Item Value Reference Range Interpretation [...] ars ofage have not been validated by th e MDRD study and shoul d be interpretedwith caution.eGFR Re sult Interpretation: eGFR > or = 60 is in t he Normal RangeeGF R < 60 may mean kidney diseaseeGFR < 1 5 may mean kidney failureRange s recommended by the National Kidney Foundation,http ://nkd ep.nih.gov [id number] 20:42:00 Test Item Value Reference Range Interpretation Comments Salicylate (test code <0.3 mg/dL 0.3-10.0 L Teresa nge in unit of = SALI) measurement for Salicylate ( fr om ug/mL to mg/dL ) [id number] 20:42:00 Test Item Value Reference Range Interpretation Comments Acetaminophen (test code = ACET) <15.0 ug/mL 15.0-30.0 L CBC with [id number] 20:23:00 Test Item Value Reference Range Interpretation [...] code = ALYMPH) 1.6 K/cumm 0.5-4.6 N [place] Abs (test code = AMONO) 0.2 K/cumm 0.0-1.2 N Eos Abs (test code = AEOS) 0.07 K/cumm 0.00-0.74 N Baso Abs (test code = ABASO) 0.1 K/cumm 0.00-0.21 N SYPHILIS (T. PALLIDUM) [id number] 15:33:00 Test Item Value Reference Range Interpretation Comments SCRN SYP (test NONREACTIVE NONREACTIVE Spyhilis IGG is a code = SCRN SYP) screening t est only. All REACTIVE result s kayleigh be confirmed by ad ditional testing. CREATINE [id number] 10:11:00 Test Item Value Reference Range Interpretation Comments CK (test code = CK) 417 U/L 55-170 H THYROID STIMULATION [id number] 01:57:00 Test Item Value Reference Range Interpretation Comments TSH (test code = TSH) 0.63 UIU/ML 0.465-4.68 [id number] 01:18:00 Test Item Value Reference Range Interpretation Comments MG (test code = MG) 2.5 mg/dL 1.6-2.3 H [id number] 01:18:00 Test Item Value Reference Range Interpretation Comments PHOSPHOR (test code = PHOSPHOR) 2.6 MG/DL 2.5-4.5 PROTHROMBIN TIME WITH [id number] 01:04:00 Test Item Value Reference Range Interpretation Comments PROTHROMBIN TIME 11.8 SECONDS 12.0-14.6 L INR Usual R ac = 2 (test code = PT) to 3 for pr evention of deep vein thrombosis (DVT ) INR (test code = INR) 0.8 XR CHEST SGL 1V, [id number] 18:23:21CHEST SINGLE VIEW:REASON FOR STUDY: PSYCH SCREENINGFINDINGS:Cardiomediastinal structures are within normal limits. No pleural fluidor pulmonary infiltrates are identified. The bony architecture appearsintact, where adequately seen.IMPRESSION: No active cardiopulmonary process is identified.XR CHEST SGL 1V, [id number] 17:07:24Information: Psychosis and smoking historyCOMPARISON: NoneCHEST:Cardiomediastinal structures are within normal limits. No pleural fluidor pulmonary infiltrates are identified. The bony architecture appearsintact, where adequately seen.
--- NOTE | 2019-12-01 19:54 | ER ---
Nurse's Notes [facility] Name: Shreyas Graves Age: 34 yrs Sex: Male : 1985 Arrival Date: 12/01/2019 Time: 16:50 Bed 26 Private MD: Diagnosis: Recurrent joints pain. Cervical lymphadenitis Presentation: 11/30 16:53 Chief complaint: Patient states: joint pains x 5 months, "It feels like little abrasion sv or something on there. I'm also starting to have lymph nodes in my neck and groin area for 5 months. I'm also having trouble with burning in my stomach. I know I have a problem with my alcoholism but I'm working on that.". Coronavirus screen: Proceed with normal triage. Patient denies a cough. Patient denies shortness of breath or difficulty breathing. Patient denies measured and/or subjective temperature greater than 100.4F prior to today's visit. Patient denies travel on a cruise ship or to a country the [facility] currently lists as an affected area. Patient denies contact with known and/or suspected case of COVID-19. Ebola Screen: No symptoms or risks identified at this time. Risk Assessment: Do you want to hurt yourself or someone else? Patient reports no desire to harm self or others. Onset of symptoms was May 2019. 16:53 Method Of Arrival: Ambulatory sv 16:53 Acuity: BRUNO 3 sv 16:55 Initial Sepsis Screen: Does the patient meet any 2 criteria? No. Patient's initial sv sepsis screen is negative. Does the patient have a suspected source of infection? No. Patient's initial sepsis screen is negative. Triage Assessment: 16:53 General: Appears in no apparent distress. uncomfortable, Behavior is cooperative, sv appropriate for age, anxious. Pain: Complains of pain in "all of my joints". Neuro: Level of Consciousness is awake, alert, obeys commands, Oriented to person, place, time, situation, Gait is steady. Respiratory: Respiratory effort is even, unlabored. Historical: - Allergies: 16:55 No Known Allergies; sv - PMHx: 16:55 Depression; sv - PSHx: 16:55 left hand; right hand; sv - Immunization history:: Adult Immunizations up to date. - Social history:: Smoking status: unknown. Screenin:25 Abuse screen: Denies threats or abuse. Denies injuries from another. Nutritional ls4 screening: No deficits noted. Fall Risk None identified. 20:27 Tuberculosis screening: No symptoms or risk factors identified. ls4 Assessment: 20:26 General: Appears in no apparent distress. uncomfortable. Neuro: No deficits noted. ls4 Respiratory: Airway is patent Respiratory effort is even, unlabored. GI: Reports occasional burning in stomach. : No deficits noted. No signs and/or symptoms were reported regarding the genitourinary system. Derm: No deficits noted. No signs and/or symptoms reported regarding the dermatologic system. Musculoskeletal: No deficits noted. No signs and/or symptoms reported regarding the musculoskeletal system. 21:29 Reassessment: Patient appears in no apparent distress at this time. Patient is alert, ls4 oriented x 3, equal unlabored respirations, skin warm/dry/pink. Vital Signs: 16:55 BP 132 / 78; Pulse 90; Resp 16; Temp 98.2; Pulse Ox 96% ; Weight 81.65 kg; Height 5 ft. sv 10 in. (177.80 cm); 21:15 BP 128 / 72; Pulse 78; Resp 16; Pulse Ox 99% on R/A; ls4 22:20 BP 132 / 74; Pulse 74; Resp 16; Pulse Ox 99% on R/A; Pain 0/10; ls4 16:55 Body Mass Index 25.83 (81.65 kg, 177.80 cm) sv ED Course: 16:50 Patient arrived in ED. mr 16:53 Arm band placed on. sv 16:55 Triage completed. sv 19:29 Hardik Dumont MD is Attending Physician. pkl 20:19 Initial lab(s) drawn, by nm, sent to lab. Inserted saline lock: 18 gauge in left ls4 antecubital area, using aseptic technique. Blood collected. 20:22 Hardik Dumont MD is Attending Physician. pkl 20:24 Kristin Brown, LEO is Primary Nurse. ls4 20:25 No apparent distress. ls4 20:25 Patient has correct armband on for positive identification. Bed in low position. Call ls4 light in reach. Side rails up X 1. Pulse ox on. NIBP on. Warm blanket given. Verbal reassurance given. 20:25 No provider procedures requiring assistance completed. Patient maintains SpO2 ls4 saturation greater than 95% on room air. 22:00 IV discontinued, intact, bleeding controlled, No redness/swelling at site. Pressure ls4 dressing applied. Administered Medications: No medications were administered Outcome: 22:09 Discharge ordered by . stacy 22:26 Patient left the ED. ls4 22:26 Discharged to home ambulatory. ls4 22:26 Condition: good 22:26 Discharge instructions given to patient, Instructed on discharge instructions, follow up and referral plans. medication usage, Demonstrated understanding of instructions, follow-up care, medications, Prescriptions given X 2. Signatures: Lakshmi Santos RN RN Chad Auguste RN RN Hardik Dumont MD MD pkl Rivera, Mary mr Stewart, Lisa, RN RN ls4 Corrections: (The following items were deleted from the chart) 16:58 16:53 Chief complaint: Patient states: joint pains x 5 months, "It feels like little sv abrasion or something on there. I'm also starting to have lymph nodes in my neck and groin area for 5 months." 16:58 16:53 Acuity: BRUNO 4 [facility] 19:54 19:52 Eloped from waiting room, Time discovered patient gone: December 01, 2019 at 19:52 [facility] 19:54 19:52 Condition: unchanged [facility] 19:54 19:53 Patient left the ED. sg sg 12/01 00:45 07/06 23:02 Patient left the ED. ls4 ls4 12/01 00:47 0706 22:30 BP 132 / 74; Pulse 74bpm; Resp 16bpm; Pulse Ox 99% RA; Pain 0/10; ls4 ls4
[2019-12-01 21:13] LABS: Absolute Lymphocytes (CBC) 1.6 K/uL (0.7-4.9); Basophils % 0.6 % (0-1.3); Hematocrit 43.6 % (39.6-49.0); Lymphocytes % 19.5 % (15.3-44.8); MPV 7.7 fL (7.6-11.3); RBC Red Blood Cell Count 4.61 M/uL (4.33-5.43)
[2019-12-01 21:34] LABS: ALT/SGPT 32 U/L (12-78); AST/SGOT 15 U/L (15-37); Alkaline Phosphatase 57 U/L (45-117); BUN Blood Urea Nitrogen 19 mg/dL (7-18); Bicarbonate 25 mmol/L (21-32); Bilirubin Direct < 0.1 mg/dL (0-0.2); Bilirubin Total 0.2 mg/dL (0.2-1.0); Glucose Level 86 mg/dL (74-106); Lipase 56 U/L (73-393); Potassium 3.7 mmol/L (3.5-5.1); Protein, Total 7.3 g/dL (6.4-8.2); Sodium Level 140 mmol/L (136-145)
--- NOTE | 2019-12-01 22:09 | EDPHYS ---
Physician Documentation [facility] Name: Shreyas Graves Age: 34 yrs Sex: Male : 1985 Arrival Date: 12/01/2019 Time: 16:50 Bed 26 Private MD: ED Physician Hardik Dumont HPI: 11/30 20:34 This 34 yrs old Male presents to ER via Ambulatory with complaints of Joint pkl pain. 20:34 Patient said he has recurrent pain in the joints ( elbow and knees ) for 4 to 5 months. pkl Also complained of recurrent lymph nodes in the neck and both groins.. Patient admits he has a problem with alcohol. Historical: - Allergies: 16:55 No Known Allergies; sv - PMHx: 16:55 Depression; sv - PSHx: 16:55 left hand; right hand; sv - Immunization history:: Adult Immunizations up to date. - Social history:: Smoking status: unknown. ROS: 20:34 Eyes: Negative for injury, pain, redness, and discharge, ENT: Negative for injury, pkl pain, and discharge. 20:34 Neck: Positive for swollen nodes. 20:34 Cardiovascular: Negative for chest pain. 20:34 Respiratory: Negative for cough, shortness of breath. 20:34 Abdomen/GI: Positive for lymph nodes in both groins. 20:34 Back: Negative for acute changes. 20:34 : Negative for urinary symptoms. 20:34 MS/extremity: Negative for acute changes. 20:34 Skin: Negative for rash. 20:34 Neuro: Negative for altered mental status. Exam: 20:34 Head/Face: Normocephalic, atraumatic. Eyes: Pupils equal round and reactive to light, pkl extra-ocular motions intact. Lids and lashes normal. Conjunctiva and sclera are non-icteric and not injected. Cornea within normal limits. Periorbital areas with no swelling, redness, or edema. ENT: Nares patent. No nasal discharge, no septal abnormalities noted. Tympanic membranes are normal and external auditory canals are clear. Oropharynx with no redness, swelling, or masses, exudates, or evidence of obstruction, uvula midline. Mucous membranes moist. 20:34 Neck: External neck: mass, small lymph nodes both sides of neck. 20:34 Chest/axilla: Exam negative for acute changes. 20:34 Cardiovascular: Rate: normal, Rhythm: regular. 20:34 Respiratory: the patient does not display signs of respiratory distress, Respirations: normal, Breath sounds: are clear throughout. 20:34 Abdomen/GI: Bowel sounds: normal, Palpation: abdomen is soft and non-tender, in all quadrants. 20:34 Back: Exam negative for acute changes. 20:34 : Exam negative for acute changes. 20:34 Musculoskeletal/extremity: Exam is negative for acute changes. 20:34 Skin: Exam negative for rash. 20:34 Neuro: Orientation: is normal, Mentation: is normal, Cranial nerves: grossly normal, Cerebellar function: is grossly normal, Motor: is normal, Sensation: is normal, Gait: is steady. Vital Signs: 16:55 BP 132 / 78; Pulse 90; Resp 16; Temp 98.2; Pulse Ox 96% ; Weight 81.65 kg; Height 5 ft. sv 10 in. (177.80 cm); 21:15 BP 128 / 72; Pulse 78; Resp 16; Pulse Ox 99% on R/A; ls4 22:20 BP 132 / 74; Pulse 74; Resp 16; Pulse Ox 99% on R/A; Pain 0/10; ls4 16:55 Body Mass Index 25.83 (81.65 kg, 177.80 cm) sv MDM: 19:29 Patient medically screened. pkl 22:04 Data reviewed: vital signs, nurses notes. ED course: Discussed lab. results with pkl patient. Advised to follow up with PCP and Equity Holder next week. Patient understood instructions. 22:09 Patient medically screened. pkl 11/30 20:31 Order name: CBC with Diff; Complete Time: 21:58 pkl 11/30 20:31 Order name: Chem 7; Complete Time: 21:58 pkl 11/30 20:31 Order name: LFT's; Complete Time: 21:58 pkl 11/30 20:31 Order name: Lipase; Complete Time: 21:58 pkl 11/30 20:31 Order name: Sed Rate; Complete Time: 21:58 pkl 11/30 20:31 Order name: UDS; Complete Time: 00:37 pkl 11/30 20:31 Order name: ETOH Level; Complete Time: 21:58 pkl 11/30 20:31 Order name: [place] Screen Profile; Complete Time: 21:58 pkl Administered Medications: No medications were administered Disposition: 12/01/19 22:09 Discharged to Home. Impression: Recurrent joints pain. Cervical lymphadenitis. - Condition is Stable. - Prescriptions for Diclofenac Sodium 75 mg Oral Tablet Sustained Release - take 1 tablet by ORAL route 2 times per day; 30 tablet. Zithromax Z- Ariel 250 mg Oral Tablet - take 1 tablet by ORAL route as directed for 5 days Day 1 - take two (2) tablets one time. Day 2, 3, 4 , 5 take one (1) tablet once daily.; 6 tablet. - Medication Reconciliation Form, Thank You Letter, Antibiotic Education, Prescription Opioid Use form. - Follow up: Private Physician; When: 1 week; Reason: Re-evaluation by your physician. - Problem is new. - Symptoms have improved. Signatures: Dispatcher [employer] EDLakshmi Ferro RN RN sv Gay, Steven, RN RN sg Lam, Pin, MD MD pkl rKistin Brown RN RN ls4 Corrections: (The following items were deleted from the chart) 19:54 19:53 12/01/2019 19:53 Patient left the facility post triage evaluation and consult. sg Reason stated they are leaving due to (see nurse's notes). Condition is Stable. 23:02 22:09 12/01/2019 22:09 Discharged to Home. Impression: Recurrent joints pain. Cervical ls4 lymphadenitis. Condition is Stable. Forms are Medication Reconciliation Form, Thank You Letter, Antibiotic Education, Prescription Opioid Use. Follow up: Private Physician; When: 1 week; Reason: Re-evaluation by your physician. Problem is new. Symptoms have improved. pkl
[2019-12-01 22:19] LABS: Barbiturates NEGATIVE (NEGATIVE); Benzodiazepines NEGATIVE (NEGATIVE); Cocaine NEGATIVE (NEGATIVE); METHAMPHETAM NEGATIVE (NEGATIVE); Methadone NEGATIVE (NEGATIVE); Opiates NEGATIVE (NEGATIVE); Phencyclidine NEGATIVE (NEGATIVE); THC Cannibis NEGATIVE (NEGATIVE)
[2019-12-01 23:28] VITALS: BP 132/78; TEMP 98.2; O2SAT 96
== END 2019-12-01 23:02 | disposition home or self-care (01) ==
LOC: ER 16:48
DX: I88.8 Other nonspecific lymphadenitis (principal)
CPT/HCPCS: 36415; 80048; 80076; 80307; 80320; 83690; 85025; 85652; 86308; 99284

== ENCOUNTER 2020-08-01 05:52 | Emergency (ER) | payer SELFPAY ==
--- OUTSIDE RECORDS SUMMARY | 2020-08-01 05:56 | XMS REPORT | Continuity of Care Document ---
:1985 Author Organization [facility] t Address [address] [place] [address] Care Team Providers Name Role Phone UNKNOWN Primary Care Physician Unavailable JUNAID Attending Clinician Unavailable HANDY Attending Clinician Unavailable JUNAID Admitting Clinician Unavailable HANDY Admitting Clinician Unavailable Problems Condition Condition Condition Status Onset Resolution Last Treating Co mments Source Name Details Category Date Date Treatment Clinician Date Alcohol Alcohol Disease Active [place] dependence dependence 2-14 Me thodi with with 00:00: st alcohol-in alcohol-in 00 duced mood duced mood disorder disorder Allergies, Adverse Reactions, Alerts This patient has no known allergies or adverse reactions. Social History Social Habit Start Date Stop Date Quantity Comments Source History of tobacco Cigarette Smoker [place] use Rastafari Cigarettes smoked 2017-07-11 2017-07-11 [place] current (pack per 00:00:00 00:00:[address] day) - Reported Tobacco use and 2017-07-11 2017-07-11 Never used [place] exposure 00:00:00 00:00:00 Rastafari Alcohol intake 2017-07-11 2017-07-11 Current drinker [place] on 00:00:00 00:00:00 of alcohol Rastafari (finding) Sex [birth year] At [birth year] [place] 00:00:00 00:00:00 Rastafari Smoking Status Start Date Stop Date Source Current every day smoker 2017-07-11 00:00:00 Jackson mcdowell Rastafari Medications This patient has no known medications. Procedures This patient has no known procedures. Encounters Start End Encounter Admission Attending Care Care Encounter Source Date/Time Date/Time Type Type Clinicians Facility Department ID 2017-06-21 2017-06-21 Emergency E JUNAID, [facility] MED [id number] [facility] 18:20:00 18:20:00 [facility] 2016-09-30 2016-09-30 Emergency E [facility] [id number] Medical 17:18:00 17:18:00 [facility] 2016-09-03 2016-09-05 Inpatient 3 CRIS HANDY DTX [id number] [place] 20:34:00 23:[facility] 2016-07-30 2016-08-11 Inpatient 2 CRIS HANDY DTX [id number] [place] 00:02:00 11:02:00 [facility] 2016-07-29 2016-07-29 Emergency [facility] [id number] Medical 16:55:00 16:55:00 [facility] 2016-07-25 2016-07-25 Emergency E [facility] [id number] Medical 16:37:00 16:37:00 [facility] 2016-07-16 2016-07-16 Emergency E [facility] [id number] Medical 11:32:00 11:32:00 [facility] Results Test Description Test Time Test Comments [...] = 0.20 g/dL 0.00-0.01 H ETOHU) Urinalysis [id number] 23:37:00 Test Item Value Reference Range Interpretation Comments Color (test code = COLOR) Yellow Yellow,Straw,Pl N yellow Clarity (test code = Clear Clear N CLAR) Specific [place] (test 1.018 1.001-1.035 N code = SPGR) [...] (test code = None /HPF BACT) Alcohol/Ethanol, [id number] 20:42:00 Test Item Value Reference Range Interpretation Comments Alcohol, Ethyl 0.21 g/dL 0.00-0.01 H Intoxicated 0.080 g/dL (test code = ETOH) or more Comprehensive Metabolic [id number] 20:42:00 Test Item Value Reference Range Interpretation [...] by the National Kidney Foundation,http ://nkd ep.nih.gov [id number] 20:42:00 Test Item Value Reference Range Interpretation Comments Salicylate (test code <0.3 mg/dL 0.3-10.0 L Teresa nge in unit of = SALI) measurement for Salicylate ( fr om ug/mL to mg/dL ) [id number] 20:42:00 Test Item Value Reference Range Interpretation Comments Acetaminophen (test code = ACET) <15.0 ug/mL 15.0-30.0 L CBC with [id number] 20:23:00 Test Item Value Reference Range Interpretation [...] code = ALYMPH) 1.6 K/cumm 0.5-4.6 N [place] Abs (test code = AMONO) 0.2 K/cumm 0.0-1.2 N Eos Abs (test code = AEOS) 0.07 K/cumm 0.00-0.74 N Baso Abs (test code = ABASO) 0.1 K/cumm 0.00-0.21 N SYPHILIS (T. PALLIDUM) [id number] 15:33:00 Test Item Value Reference Range Interpretation Comments SCRN SYP (test NONREACTIVE NONREACTIVE Spyhilis IGG is a code = SCRN SYP) screening t est only. All REACTIVE result s kayleigh be confirmed by ad devi testing. CREATINE [id number] 10:11:00 Test Item Value Reference Range Interpretation Comments CK (test code = CK) 417 U/L 55-170 H THYROID STIMULATION [id number] 01:57:00 Test Item Value Reference Range Interpretation Comments TSH (test code = TSH) 0.63 UIU/ML 0.465-4.68 [id number] 01:18:00 Test Item Value Reference Range Interpretation Comments MG (test code = MG) 2.5 mg/dL 1.6-2.3 H [id number] 01:18:00 Test Item Value Reference Range Interpretation Comments PHOSPHOR (test code = PHOSPHOR) 2.6 MG/DL 2.5-4.5 PROTHROMBIN TIME WITH [id number] 01:04:00 Test Item Value Reference Range Interpretation Comments PROTHROMBIN TIME 11.8 SECONDS 12.0-14.6 L INR Usual R ac = 2 (test code = PT) to 3 for pr evention of deep vein thrombosis (DVT ) INR (test code = INR) 0.8 XR CHEST SGL 1V, [id number] 18:23:21CHEST SINGLE VIEW:REASON FOR STUDY: PSYCH SCREENINGFINDINGS:Cardiomediastinal structures are within normal limits. No pleural fluidor pulmonary infiltrates are identified. The bony architecture appearsintact, where adequately seen.IMPRESSION: No active cardiopulmonary process is identified.XR CHEST SGL 1V, [id number] 17:07:24Information: Psychosis and smoking historyCOMPARISON: NoneCHEST:Cardiomediastinal structures are within normal limits. No pleural fluidor pulmonary infiltrates are identified. The bony architecture appearsintact, where adequately seen.
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
[2020-08-01 06:42] LABS: Absolute Lymphocytes (CBC) 2.6 K/uL (0.7-4.9); Basophils % 0.5 % (0-1.3); Hematocrit 34.5 % (39.6-49.0); Lymphocytes % 34.8 % (15.3-44.8); MPV 7.7 fL (7.6-11.3); RBC Red Blood Cell Count 3.67 M/uL (4.33-5.43)
[2020-08-01] MEDS ORDERED: NA CHLORIDE 0.9% 1,000 ML ONE (06:45)
[2020-08-01] MEDS ORDERED: ONDANSETRON 4 MG/2 ML VIAL ONE (07:10)
[2020-08-01] MEDS ORDERED: TETANUS & DIPHTHERIA TOX,ADULT 0.5 ML VIAL ONE (07:10)
[2020-08-01] MEDS ORDERED: CEFAZOLIN SODIUM 1 GM/VIAL ONE (07:10)
[2020-08-01] MEDS ORDERED: NA CHLORIDE 0.9% 100 ML ONE (07:11)
[2020-08-01 07:15] LABS: Protime INR 1.03
[2020-08-01] MEDS ORDERED: NA CHLORIDE 0.9% 500 ML ONE (07:16)
[2020-08-01 07:28] VITALS: BP 197/114; O2SAT 93
[2020-08-01 07:40] LABS: Potassium 3.2 mmol/L (3.5-5.1)
[2020-08-01 09:13] LABS: Blood Gas Oxyhemoglobin 96.2 % (94-97); Blood O2 Saturation 99.4 % (92-98.5)
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
== END 2020-08-01 07:21 | disposition short-term general hospital (02) ==
LOC: ER 05:52
PROC: 0BH17EZ Insertion of Endotracheal Airway into Trachea, Via Natural or Artificial Opening (ICD-10-PCS; principal; 2020-08-01)
PROC: 5A1935Z Respiratory Ventilation, Less than 24 Consecutive Hours (ICD-10-PCS; 2020-08-01)
PROC: 06HM33Z Insertion of Infusion Device into Right Femoral Vein, Percutaneous Approach (ICD-10-PCS; 2020-08-01)
PROC: 0W9B30Z Drainage of Left Pleural Cavity with Drainage Device, Percutaneous Approach (ICD-10-PCS; 2020-08-01)
DX: S27.1XXA Traumatic hemothorax, initial encounter (principal); S31.134A Puncture wound of abdominal wall without foreign body, left lower quadrant without penetration into peritoneal cavity, initial encounter; F10.129 Alcohol abuse with intoxication, unspecified; Z23 Encounter for immunization
CPT/HCPCS: 31500; 36415; 70450; 71045; 71260; 72125; 72170; 74177; 80048; 80320; 82805; 85025; 85610; 85730; 86850; 86900; 86901; 90471; 90714; 96365; 99291; G0390; J0690; J2405; J7030; J7050; P9016; Q9967

== ENCOUNTER 2021-09-07 14:58 | Emergency (ER) | payer SELFPAY ==
--- OUTSIDE RECORDS SUMMARY | 2021-09-07 15:01 | XMS REPORT | Continuity of Care Document ---
:1985 Author Organization [facility] t Address [address] [place] [address] Care Team Providers Name Role Phone UNKNOWN Primary Care Physician Unavailable JUNAID Attending Clinician Unavailable HANDY Attending Clinician Unavailable JUNAID Admitting Clinician Unavailable HANDY Admitting Clinician Unavailable Problems This patient has no known problems. Allergies, Adverse Reactions, Alerts This patient has no known allergies or adverse reactions. Medications This patient has no known medications. Procedures This patient has no known procedures. Encounters Start End Encounter Admission Attending Care Care Encounter Source Date/Time Date/Time Type Type Clinicians Facility Department ID 2017-06-21 2017-06-21 Emergency E JUNAID, [facility] [id number] [facility] 18:20:00 18:20:00 [facility] 2016-09-30 2016-09-30 Emergency E [facility] [id number] Medical 17:18:00 17:18:00 [facility] 2016-09-03 2016-09-05 Inpatient 3 HANDY, BHSSET DTX [id number] Jain 20:34:00 23:00:00 [facility] 2016-07-30 2016-08-11 Inpatient 2 HANDY, BHSSET DTX [id number] J[facility] 00:02:00 11:02:[facility] 2016-07-29 2016-07-29 Emergency E [facility] [id number] Medical 16:55:00 16:55:00 [facility] 2016-07-25 2016-07-25 Emergency E [facility] [id number] Medical 16:37:00 16:37:00 [facility] 2016-07-16 2016-07-16 Emergency E [facility] [id number] Medical 11:32:00 11:32:00 [facility] Results Test Description Test Time Test [...] = 0.20 g/dL 0.00-0.01 H ETOHU) Urinalysis [id number] 23:37:00 Test Item Value Reference Range Interpretation Comments Color (test code = COLOR) Yellow Yellow,Straw,Pl N yellow Clarity (test code = Clear Clear N CLAR) Specific [place] (test 1.018 1.001-1.035 N code = SPGR) [...] (test code = None /HPF BACT) Alcohol/Ethanol, [id number] 20:42:00 Test Item Value Reference Range Interpretation Comments Alcohol, Ethyl 0.21 g/dL 0.00-0.01 H Intoxicated 0.080 g/dL (test code = ETOH) or more Comprehensive Metabolic [id number] 20:42:00 Test Item Value Reference Range Interpretation [...] is not provided , and the patient isRobbin-Luis Alberto can, multiply by 1.2 12. If sex is not prov ided, and thepatient is female, multipl y by 0.742. Results for patients <18 ye ars ofage have not been validated by th e MDRD study and scooby d be interpretedwith caution.eGFR Re sult Interpretation: eGFR > or = 60 is in t he Normal RangeeGF R < 60 may mean kidney diseaseeGFR < 1 5 may mean kidney failureRange s recommended by the National Kidney Foundation,http ://nkd ep.nih.gov [id number] 20:42:00 Test Item Value Reference Range Interpretation Comments Salicylate (test code <0.3 mg/dL 0.3-10.0 L Teresa nge in unit of = SALI) measurement for Salicylate ( fr om ug/mL to mg/dL ) [id number] 20:42:00 Test Item Value Reference Range Interpretation Comments Acetaminophen (test code = ACET) <15.0 ug/mL 15.0-30.0 L CBC with [id number] 20:23:00 Test Item Value Reference Range Interpretation [...] code = ALYMPH) 1.6 K/cumm 0.5-4.6 N [place] Abs (test code = AMONO) 0.2 K/cumm 0.0-1.2 N Eos Abs (test code = AEOS) 0.07 K/cumm 0.00-0.74 N Baso Abs (test code = ABASO) 0.1 K/cumm 0.00-0.21 N SYPHILIS (T. PALLIDUM) [id number] 15:33:00 Test Item Value Reference Range Interpretation Comments SCRN SYP (test NONREACTIVE NONREACTIVE Spyhilis IGG is a code = SCRN SYP) screening t est only. All REACTIVE result s kayleigh be confirmed by ad ditional testing. CREATINE [id number] 10:11:00 Test Item Value Reference Range Interpretation Comments CK (test code = CK) 417 U/L 55-170 H THYROID STIMULATION [id number] 01:57:00 Test Item Value Reference Range Interpretation Comments TSH (test code = TSH) 0.63 UIU/ML 0.465-4.68 [id number] 01:18:00 Test Item Value Reference Range Interpretation Comments PHOSPHOR (test code = PHOSPHOR) 2.6 MG/DL 2.5-4.5 [id number] 01:18:00 Test Item Value Reference Range Interpretation Comments MG (test code = MG) 2.5 mg/dL 1.6-2.3 H PROTHROMBIN TIME WITH [id number] 01:04:00 Test Item Value Reference Range Interpretation Comments PROTHROMBIN TIME 11.8 SECONDS 12.0-14.6 L INR Usual R ac = 2 (test code = PT) to 3 for pr evention of deep vein thrombosis (DVT ) INR (test code = INR) 0.8 XR CHEST SGL 1V, [id number] 18:23:21CHEST SINGLE VIEW:REASON FOR STUDY: PSYCH SCREENINGFINDINGS:Cardiomediastinal structures are within normal limits. No pleural fluidor pulmonary infiltrates are identified. The bony architecture appearsintact, where adequately seen.IMPRESSION: No active cardiopulmonary process is identified.XR CHEST SGL 1V, [id number] 17:07:24Information: Psychosis and smoking historyCOMPARISON: NoneCHEST:Cardiomediastinal structures are within normal limits. No pleural fluidor pulmonary infiltrates are identified. The bony architecture appearsintact, where adequately seen.
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
--- NOTE | 2021-09-07 15:47 | EDPHYS ---
Physician Documentation [facility] Name: Shreyas Graves Age: 36 yrs Sex: Male : 1985 Arrival Date: 09/07/2021 Time: 15:04 Bed 5 Private MD: ED Physician Javi Blancas HPI: 09/07 15:06 This 36 yrs old Male presents to ER via Unassigned with complaints of Suicidal. ms3 15:06 The patient presents to the emergency department with depression, suicide ideation, and ms3 the patient has a plan, Cut wrist. Onset: The symptoms/episode began/occurred acutely, 12 day(s) ago. Past psychiatric history: Prior diagnosis: depression, Psychiatric medications include: none, Primary psychiatric physician: the patient has not had a prior suicide gesture, the patient has a previous inpatient psychiatric history, 6 year(s) ago. Associated signs and symptoms: Pertinent positives; substance abuse, suicide ideation, Pertinent negatives: abdominal pain. Severity of symptoms: At their worst the symptoms were moderate in the emergency department the symptoms are unchanged. 36-year-old male with past medical history of major depressive disorder and bipolar presents with suicidal ideation after using alcohol and meth stating he wants help. Patient states he is off his psychiatric medicationsProzac and gabapentin. Patient states his plan for suicide would be to slit his wrist. Patient denies previous attempts. Patient states he was hospitalized for psychiatric disorders in 2016 and is currently been off his medications since.. Historical: - PMHx: 09/08 03:36 Depression; tw5 - Immunization history:: Flu vaccine is not up to date. - Social history:: Smoking status: Patient reports the use of cigarette tobacco products, Patient uses alcohol. ROS: 09/07 15:06 Constitutional: Negative for fever, and chills. Neck: Negative for injury, pain, and ms3 swelling, Cardiovascular: Negative for chest pain, and palpitations. Respiratory: Negative for shortness of breath, cough, wheezing, and pleuritic chest pain, Abdomen/GI: Negative for abdominal pain, nausea, vomiting, diarrhea, and constipation, MS/Extremity: Negative for injury and deformity, Skin: Negative for injury, rash, and discoloration, Neuro: Negative for headache, weakness, numbness, tingling. Psych: Positive for drug dependence, suicidal ideation. All other systems are negative. Exam: 15:06 Constitutional: This is a well developed, well nourished patient who is awake, alert, ms3 and in no acute distress. Head/Face: Normocephalic, atraumatic. Neck: Trachea midline, no cervical lymphadenopathy. Supple, full range of motion without nuchal rigidity, or vertebral point tenderness. No Meningismus. Chest/axilla: Normal chest wall appearance and motion. Nontender with no deformity. Cardiovascular: Regular rate and rhythm with a normal S1 and S2. No gallops, murmurs, or rubs. Normal PMI, no JVD. No pulse deficits. Respiratory: Lungs have equal breath sounds bilaterally, clear to auscultation and percussion. No rales, rhonchi or wheezes noted. No increased work of breathing, no retractions or nasal flaring. Abdomen/GI: Soft, non-tender, with normal bowel sounds. No distension or tympany. No guarding or rebound. No evidence of tenderness throughout. Back: No spinal tenderness. No costovertebral tenderness. Full range of motion. Skin: Warm, dry with normal turgor. Normal color with no rashes, no lesions, and no evidence of cellulitis. MS/ Extremity: Pulses equal, no cyanosis. Neurovascular intact. Full, normal range of motion. Neuro: Awake and alert, GCS 15, oriented to person, place, time, and situation. Cranial nerves II-XII grossly intact. Motor strength 5/5 in all extremities. Sensory grossly intact. Cerebellar exam normal. Normal gait. 15:06 Psych: Behavior/mood is pleasant, cooperative, Affect is animated, Oriented to person, place, time, Patient having thoughts of suicide. Judgement / Insight is normal. Memory is normal. Delusions/hallucinations are not present. 15:34 ECG was reviewed by the Attending Physician. ms3 Vital Signs: 16:07 BP 104 / 65; Pulse 104; Resp 16; Temp 98.4; Pulse Ox 99% on R/A; Weight 83.91 kg; ww Height 5 ft. 11 in. (180.34 cm); Pain /10; 09/08 03:48 BP 112 / 72; Pulse 98; Resp 16; Pulse Ox 100% on R/A; kd3 05:23 BP 128 / 73; Pulse 88; Resp 18; Pulse Ox 100% on R/A; kd3 22:01 BP 134 / 77; Pulse 80; Resp 19; Temp 97.5(TE); Pulse Ox 99% on R/A; ll3 09/09 02:00 BP 117 / 79; Pulse 55; Resp 19; Pulse Ox 97% on R/A; ll3 06:41 BP 123 / 67; Pulse 67; Resp 19 S; Temp 97.1(O); Pulse Ox 97% on R/A; lg3 09/07 16:07 Body Mass Index 25.80 (83.91 kg, 180.34 cm) ww MDM: 09/07 15:04 Patient medically screened. ms3 15:06 Differential diagnosis: acute psychotic break, depression, psychosis secondary to ms3 non-compliance. 09/08 05:38 Data reviewed: vital signs, nurses notes, lab test result(s), EKG, radiologic studies. kdr Counseling: I had a detailed discussion with the patient and/or guardian regarding: the historical points, exam findings, and any diagnostic results supporting the discharge/admit diagnosis, lab results, radiology results. 05:39 ED course: Patient continues to be stable in the ED and not requiring any intervention. kdr Patient was given 2 mg of Ativan p.o. around midnight but has not required any further chemical restraint or otherwise needing to be more invasively managed. Patient has been sleeping for the last few hours without any adverse occurrences. 19:38 ED course: Patient currently resting comfortably in bed not requiring any acute kdr intervention. Shift report was that the patient had been stable all day and still awaiting placement. 09/09 07:24 ED course: Discussed case with Dr Avendaño and she accepts patient at [facility]. ms3 Patient medically stable for transport at this time.. 09/07 15:05 Order name: Acetaminophen; Complete Time: 17:24 ms3 09/07 15:05 Order name: Basic Metabolic Panel; Complete Time: 17:24 ms3 09/07 15:05 Order name: CBC with Diff; Complete Time: 17:24 ms3 09/07 15:05 Order name: ETOH Level; Complete Time: 17:24 ms3 09/07 15:05 Order name: Hepatic Function; Complete Time: 17:24 ms3 09/07 15:05 Order name: PT-INR; Complete Time: 17:24 ms3 04/13 15:05 Order name: Ptt, Activated; Complete Time: 17:24 ms3 09/07 15:05 Order name: Salicylate; Complete Time: 17:24 ms3 09/07 15:05 Order name: Urine Drug Screen; Complete Time: 01:24 ms3 09/07 15:41 Order name: COVID-19 SARS RT PCR (Document "Date of Onset" if Symptomatic); Complete ss Time: 18:35 09/07 19:35 Order name: ETOH Level: Draw at 22:00; Complete Time: 01:24 kdr 09/08 01:25 Order name: ETOH Level: Draw at 05:00; Complete Time: 07:18 kdr 09/07 15:05 Order name: EKG; Complete Time: 15:05 ms3 09/07 15:05 Order name: EKG - Nurse/Tech; Complete Time: 16:03 ms3 09/07 15:05 Order name: IV Saline Lock; Complete Time: 16:03 ms3 09/07 15:05 Order name: Labs collected and sent; Complete Time: 16:03 ms3 09/07 15:05 Order name: Suicide Precautions; Complete Time: 16:03 ms3 09/07 15:05 Order name: Suicide Screening ([place]); Complete Time: 16:05 ms3 09/07 15:05 Order name: Urine Dipstick-Ancillary (obtain specimen); Complete Time: 16:05 ms3 09/07 15:22 Order name: Diet Finger Food; Complete Time: 15:23 bd 09/08 07:15 Order name: Diet Finger Food; Complete Time: 07:15 dh3 09/08 11:52 Order name: Diet Finger Food; Complete Time: 11:53 dh3 09/08 15:08 Order name: Diet Finger Food; Complete Time: 15:08 mh5 09/09 07:05 Order name: EKG Electrocardiogram EDMS 09/09 07:25 Order name: Diet Finger Food; Complete Time: 07:26 liao EC/13 15:34 Rate is 90 beats/min. Rhythm is regular. AL interval is normal. QRS interval is normal. ms3 Clinical impression: Normal ECG. Interpreted by me. Reviewed by me. Administered Medications: 16:03 Drug: NS 0.9% 1000 ml Route: IV; Rate: 125 ml/hr; Site: right antecubital; ww 09/08 03:47 Follow up: Rate change 900 ml; IV Status: Infusion continued kd3 09/07 17:00 Drug: Thiamine 100 mg Route: PO; ww 09/08 03:48 Follow up: Response: No adverse reaction kd3 09/07 21:40 Drug: NS 0.9% 1000 ml Route: IV; Rate: 1 bolus; Site: right antecubital; kd3 09/08 03:46 Follow up: Response: No adverse reaction; Rate change 1000 ml; IV Status: Completed kd3 infusion 09/07 21:53 Drug: Ativan (LORazepam) 1 mg Route: IVP; Site: right antecubital; kd3 09/08 03:47 Follow up: Response: No adverse reaction; Anxiety decreased kd3 09/09 00:17 Drug: Ativan (LORazepam) 1 mg Route: IVP; Site: right antecubital; 3 00:17 Follow up: Response: No adverse reaction; RASS: Alert and Calm (0) lg3 Disposition Summary: 09/07/21 15:47 Transfer Ordered Transfer Location: Psych Facility ms3 Reason: Higher level of care ms3 Condition: Stable ms3 Problem: new ms3 Symptoms: are unchanged ms3 Accepting Physician: Psychiatry(09/09/21 09:28) liao Diagnosis - Suicidal ideations ms3 - Depression ms3 Forms: - Medication Reconciliation Form ms3 - SBAR form ms3 Signatures: Dispatcher [employer] EDRavi Mccann MD MD kdr César Waters, DUBBING MACHINE OPERATOR-C DUBBING MACHINE OPERATOR-Cla1 Amaris Cornelius RN RN lg3 Javi Blancas DO DO ms3 Maddie Barbour tw5 Negra Hernandez RN RN kd3 Criss Barbour RN RN Elizabeth Garcia RN RN liao Corrections: (The following items were deleted from the chart) :09/07 15:47 Psychiatry ms3 liao
[2021-09-07] MEDS ORDERED: NA CHLORIDE 0.9% 1,000 ML ONE ×2 (15:49→21:30)
[2021-09-07 15:52] LABS: Absolute Lymphocytes (CBC) 2.1 K/uL (0.7-4.9); Hematocrit 44.7 % (39.6-49.0); Lymphocytes % 44.1 % (15.3-44.8); MPV 6.5 fL (7.6-11.3)
[2021-09-07 16:00] LABS: Protime INR 0.93
[2021-09-07] MEDS ORDERED: LORazepam 2 MG/ML VIAL ONE ×2 (16:16→21:49)
[2021-09-07 16:47] LABS: ALT/SGPT 40 U/L (12-78); AST/SGOT 22 U/L (15-37); Albumin 4.4 g/dL (3.4-5.0); Alkaline Phosphatase 69 U/L (45-117); BUN Blood Urea Nitrogen 8 mg/dL (7-18); Bicarbonate 30 mmol/L (21-32); Bilirubin Direct 0.1 mg/dL (0-0.2); Bilirubin Total 0.3 mg/dL (0.2-1.0); Glucose Level 93 mg/dL (74-106); Potassium 4.2 mmol/L (3.5-5.1); Protein, Total 8.4 g/dL (6.4-8.2); Sodium Level 142 mmol/L (136-145)
[2021-09-07] MEDS ORDERED: THIAMINE HCL 100 MG TABLET ONE (17:34)
[2021-09-07 19:45] LABS: Barbiturates NEGATIVE (NEGATIVE); Benzodiazepines NEGATIVE (NEGATIVE); Cocaine NEGATIVE (NEGATIVE); METHAMPHETAM NEGATIVE (NEGATIVE); Methadone NEGATIVE (NEGATIVE); Opiates NEGATIVE (NEGATIVE); Phencyclidine NEGATIVE (NEGATIVE); THC Cannibis POSITIVE (NEGATIVE)
--- NOTE | 2021-09-08 07:53 | EKG ---
Test Date: 2021-09-07 Test Time: 15:33:28 [employer]: JANAK MEASUREMENT RESULTS: Intervals: Rate: 97 [place]: 148 QRSD: 96 QT: 344 QTc: 436 [place]: P: 35 [place]: 148 QRS: 71 T: 52 INTERPRETIVE STATEMENTS: Normal sinus rhythm Normal ECG Compared to ECG 09/30/2019 21:14:50 Sinus tachycardia no longer present Electronically Signed On 09-08-21 07:52:30 CDT by Leonard Arellano
[2021-09-09] MEDS ORDERED: LORazepam 2 MG/ML VIAL ONE (00:19)
[2021-09-09 13:47] VITALS: O2SAT 97
[2021-09-09 13:49] VITALS: BP 123/67; TEMP 97.1
== END 2021-09-09 09:28 ==
LOC: ER 14:58
DX: R45.851 Suicidal ideations (principal); F32.A Depression, unspecified; F17.210 Nicotine dependence, cigarettes, uncomplicated; Z20.822 Contact with and (suspected) exposure to COVID-19
CPT/HCPCS: 36415; 80048; 80076; 80307; 80320; 80329; 85025; 85610; 85730; 93005; 96361; 96374; 99285; J7030; U0003